=== PATIENT | female | born 1970 | race Caucasian/White ===

== ENCOUNTER 2016-09-09 19:21 | Emergency (ER) | payer BC ==
[~2016-09-09] VITALS: Ht 147.3 cm; Wt 90.7 kg
[~2016-09-09 19:21] MED LIST: ALBUTEROL0.09 MG/A1 IH; ALBUTEROL4 MG PO; ASPIRIN81 M1 PO; ASPIRIN81 M3 PO; ATARAX HCL25 MG PO; BENTYL10 MG PO; BUPROPION HYDR; BUPROPION SR150 MG PO; CARISOPRODOL350 M1; CLARITIN10 MG PO; CLONAZEPAM1 M1 PO; COLACE; DESYREL50 MG PO; HYDROXYZINE PO; LACTINEX1 TAB.CHEW PO; LEVAQUIN750 MG PO; LIPITOR10 MG PO; METHOCARBAMOL750 MG PO; NEURONTIN100 MG PO; NEURONTIN300 MG PO; ONDANSETRON8 M1 PO; PANTOPRAZOLE SO40 M1 PO; PAROXETINE30 M1 PO; PAXIL10 MG PO; PERCOCET 5/3251 TAB PO; PREDNISONE10 M1 PO; PREDNISONE20 M1 PO; PREDNISONE5 M1 PO; PREMARIN0.3 M1 PO; PREMARIN0.625 MG PO; PROAIR HFA0.09 MG/Ac IH; ROBAXIN500 M1 PO; SOMA350 M1 PO; SOMA350 MG PO; SULFAMETH/TRIME1 TA1 PO; TRAMADOL50 MG PO; TRAZADONE HYDR100 MG; TYLENOL325 M1 PO; ULTRAM100 MG PO; WELLBUTRIN SR100 MG PO; WELLBUTRIN100 MG PO; ZOLOFT100 MG PO; ZOLOFT50 M1 PO; ZOLOFT50 MG PO
[2016-09-09 19:35] VITALS: BP 120/68
--- NOTE | 2016-09-09 20:22 | NUR ---
SALMA GOMEZR TO ER BED 5
--- NOTE | 2016-09-09 20:25 | NUR ---
PT BIB FAMILY TO ED WITH C/O BRUISE TO TAIL BONE, S/P FALL X 2 DAYS, PT STATES HX. BACK SX. AND ASTHMA. DENIES N/V/D; SKIN IS PINK/WARM/DRY; AAOX4 WITH EVEN AND STEADY GAIT; LUNGS CLEAR BL; HR EVEN AND REGULAR; PT DENIES ANY FEVER, CP, SOB, OR COUGH AT THIS TIME; PATIENT STATES PAIN OF 10/10 AT THIS TIME; VSS; PATIENT POSITIONED FOR COMFORT; HOB ELEVATED; BEDRAILS UP X2; BED DOWN. ER MD MADE AWARE OF PT STATUS.
--- NOTE | 2016-09-09 20:34 | NUR ---
PT SPO2 AT 68% VIA FINGER PULSE OX. DR BURNETT MADE AWARE.
--- NOTE | 2016-09-09 21:03 | NUR ---
DR BURNETT EVALUATING PT AT BEDSIDE
[2016-09-09] MEDS ORDERED: HYDROmorphone PFS 2 MG/ML SYR IM ONE (21:15)
--- NOTE | 2016-09-09 22:06 | NUR ---
PT TAKEN OFF THE UNIT VIA WHEELCHAIR TO HAVE X-RAY DONE
[2016-09-09] MEDS ORDERED: NACL 0.9% 1,000 ML IV ONE (22:25)
[2016-09-09] MEDS ORDERED: SILVER SULFADIAZINE 1% 50 GM JAR TP ONE (22:25)
--- NOTE | 2016-09-09 22:37 | NUR ---
PT TAKEN OFF UNIT VIA GURNEY TO HAVE CT DONE
--- NOTE | 2016-09-09 23:06 | NUR ---
PT BACK ON UNIT FROM CT
[2016-09-10] MEDS ORDERED: ENOXAPARIN 100 MG/ML SYR SUBQ ONE (00:10)
[2016-09-10] MEDS ORDERED: LEVOFLOXACIN 500 MG/D5W PREMIX 100 ML IV ONE (00:10)
[2016-09-10] MEDS ORDERED: ASPIRIN 81 MG TAB.CHEW PO ONE (00:45)
[2016-09-10] MEDS ORDERED: MORPHINE SULFATE 2 MG/ML SYR IVP ONE (00:45)
[2016-09-10 02:06] VITALS: BP 122/76
--- NOTE | 2016-09-10 02:06 | NUR ---
Patient does not wish to proceed with medical care recommended by DR BURNETT. Patient given information related to possible complications, up to and including , which could occur as a result of leaving hospital at this time. Patient verbalizes understanding of risks involved leaving against medical advice. Patient has signed AMA form. ACCOMPANIED BY SHANELL VIA WHEELCHAIR
[2016-09-11] MEDS ORDERED: PROTONIX40 MG PO (13:35)
[2016-10-30] MEDS ORDERED: LEVAQUIN750 MG PO (09:04)
[2017-01-12] MEDS ORDERED: LIORESAL10 MG PO (14:26)
== END 2016-09-10 02:06 | disposition left against medical advice (07) ==
LOC: MED 19:21
DX: G89.29 Other chronic pain (principal); M54.9 Dorsalgia, unspecified; K75.9 Inflammatory liver disease, unspecified; J18.8 Other pneumonia, unspecified organism; I21.4 Non-ST elevation (NSTEMI) myocardial infarction; Z88.1 Allergy status to other antibiotic agents; Z88.6 Allergy status to analgesic agent
CPT/HCPCS: 36415; 36600; 70450; 71010; 71250; 72100; 73140; 80053; 81001; 81025; 82803; 83605; 83880; 84484; 85025; 85610; 85730; 87040; 87086; 87186; 93005; 96361; 96365; 96372; 99285; J1170; J1650; J1956; J2270; J7030

== ENCOUNTER 2016-09-11 13:09 | Inpatient (IN) | payer BC ==
[~2016-09-11] VITALS: Ht 147.3 cm; Wt 88.9 kg
[2016-09-11 13:17] VITALS: BP 135/74
--- NOTE | 2016-09-11 13:20 | NUR ---
Patient taken to bed 05 via walker per .
[2016-09-11] MEDS ORDERED: PROTONIX40 MG PO (13:35)
[2016-09-11] MEDS ORDERED: ASPIRIN 325 MG TAB PO ONE (13:40)
--- NOTE | 2016-09-11 13:44 | NUR ---
XRAY at bedside.
--- NOTE | 2016-09-11 13:46 | NUR ---
46/F TO ED WITH C/O CHEST PAIN STARTING TODAY. NON RADIATING STERNAL CHEST PAIN 12/12. DENIES SOB. CAP REFILL <3 SECS. NO EDEMA PRESENT. DENIES N/V/D. LUNGS CLEAR BILAT. HR EVEN AND REGULAR. AAOX4. VSS. NO SIGNS OF DISTRESS. WILL CONTINUE TO MONITOR.
--- NOTE | 2016-09-11 13:55 | NUR ---
Dr. Proctor evaluating patient at bedside.
[2016-09-11] MEDS ORDERED: NACL 0.9% 500 ML IV ONE (14:00)
[2016-09-11] MEDS ORDERED: NITROGLYCERIN 0.4 MG TAB SL ONE (14:00)
[2016-09-11] MEDS ORDERED: hePARIN / DEXT 5% PREMIX 250 ML IV ONE (14:50)
[2016-09-11] MEDS ORDERED: HEPARIN PER PHARMACY MC PRN ×2 (14:50→17:05)
[2016-09-11] MEDS ORDERED: MORPHINE SULFATE 5 MG/ML VIAL IVP ONE (14:50)
--- NOTE | 2016-09-11 15:05 | NUR ---
Patient appears to be resting comfortably in bed. Vital Signs within normal limits. Respirations even and unlabored.
[2016-09-11] MEDS ORDERED: MORPHINE SULFATE 10 MG/ML SYR IVP ONE (15:30)
[2016-09-11] MEDS ORDERED: hePARIN / DEXT 5% PREMIX 250 ML IV SCH ×3 (15:40→17:20)
--- NOTE | 2016-09-11 16:22 | NUR ---
Patient appears to be resting comfortably in bed. Vital Signs within normal limits. Respirations even and unlabored.
[2016-09-11] MEDS ORDERED: ONDANSETRON 4 MG/2 ML VIAL IVP PRN (17:00)
[2016-09-11] MEDS ORDERED: DOCUSATE SODIUM 100 MG GELCAP PO PRN (17:00)
[2016-09-11] MEDS ORDERED: DICYCLOMINE 10 MG CAP PO PRN (17:30)
[2016-09-11] MEDS ORDERED: HYDROXYZINE HYDROCHLORIDE PO SCH (17:30)
[2016-09-11] MEDS ORDERED: oxyCODONE/APAP 5/325 MG 1 TAB TAB PO SCH (17:30)
--- NOTE | 2016-09-11 17:45 | NUR ---
Patient will be admitted to care of DR LAW. Admited to TELE. Will go to room 105A. Belongings list completed. Report to
[2016-09-11 18:00] VITALS: BP 110/69
--- NOTE | 2016-09-11 18:00 | NUR ---
PATIENT ARRIVED FROM ER WITH DX OF PULMONARY EMBOLISM. PATIENT AWAKE, ALERT, AND ORIENTED. HIGGINS CATHETER IN PLACE, DRAINING CLEAR YELLOW URINE. PATIENT REPORTS OF SOB AND IS PUT ON 2L O2. O2 SATURATION AT 88%. PATIENT REPORTS TO BE A SMOKER. PATIENTS STATES SHE SMOKES ABOUT 10 CIGARETTES A DAY. PATIENT STATES SHE HAS BEEN A SMOKER FOR 20 YEARS. IV LINE NOTED ON THE RIGHT AC SALINE LOCKED. PATIENT ON HEPARIN DRIP RUNNING AT 12ML/HR INFUSING ON HER LEFT HAND. PATIENT HAS A CLOSED WOUND ON HER SACRAL AREA WITH BLISTERS. PATIENT REPORTS THAT SHE ACQUIRED THE WOUND AFTER SHE FELL DUE TO LACK OF OXYGEN. PATIENT PLACED ON TELE MONITORING. FALL PRECAUTIONS IN PLACE. BED LOWERED WITH CALL LIGHT WITHIN REACH. WILL CONTINUE TO MONITOR
--- NOTE | 2016-09-11 18:30 | NUR ---
PATIENT PUT ON 4L O2 VIA NC. O2 SAT AT 91%. MADE DR PEREZ AWARE
[2016-09-11] MEDS ORDERED: ALBUTEROL SULFATE/IPRATROPIU 3 ML SOL IH PRN (19:10)
--- NOTE | 2016-09-11 19:22 | NUR ---
PATIENT REPORT GIVEN AT BEDSIDE. PATIENT IN STABLE CONDITION
--- NOTE | 2016-09-11 19:30 | NUR ---
REPORT RECEIVED FROM DAY NURSECLAUDIA. PATIENT RESTING IN BED. NO RESPIRATORY DISTRESS, SOB, OR DISCOMFORT. HEPARIN DRIP INFUSING AT THIS TIME; 12 ML/HR, PATIENT TOLERATING WELL. INITIAL ASSESSMENT AND BODY CHECK DONE. PATIENT IS AOX4, IV ACCESS TO LEFT HAND 22G AND RIGHT AC 20G; BOTH PORTS PATENT. PATIENT HAS WOUND/BLISTER TO SACRAL/BUTTOCKS AREA ALONG WITH SURROUNDING BLISTERS AND SCARRING. PATIENT HAS F/C IN PLACE DRAINING CLOUDY YELLOW. DISCUSSED PLAN OF CARE, MEDICATION REGIMENT, AND PAIN MANAGEMENT WITH PATIENT. PATIENT VERBALIZED UNDERSTANDING. PLACED PATIENT ON SAFETY/FALL/PRESSURE ULCER PRECAUTIONS. CALL LIGHT LEFT WITHIN REACH, WILL CONTINUE TO MONITOR.
[2016-09-11 20:00] VITALS: BP 121/68
[2016-09-11] MEDS: NACL 0.9% 1,000 ML IV SCH (20:16)
[2016-09-11] MEDS: ACETAMINOPHEN 325 MG TAB PO PRN (20:18)
[2016-09-11] MEDS: MORPHINE SULFATE 2 MG/ML SYR IVP PRN (20:40)
[2016-09-11] MEDS: GABAPENTIN 300 MG CAP PO SCH (20:55)
[2016-09-11] MEDS: PARoxetine 10 MG TAB PO SCH (20:56)
[2016-09-11] MEDS: ATORVASTATIN 20 MG TAB PO SCH (20:56)
[2016-09-11] MEDS: buPROPion 150 MG TABER PO SCH (20:56)
[2016-09-11] MEDS ORDERED: BUPROPION HCL 150 MG PO SCH (21:00)
[2016-09-11] MEDS ORDERED: PAROXETINE HCL 30 MG PO SCH (21:00)
--- NOTE | 2016-09-11 21:21 | NUR ---
SPOKE WITH PATIENT'S , ERIK, OVER THE PHONE. PATIENT ASLEEP AT THE TIME. UPDATED FAMILY MEMBER OF PATIENT STATUS, VERBALIZED UNDERSTANDING.
--- NOTE | 2016-09-11 22:03 | NUR ---
PATIENT IN BED, SLEEPING. NO RESPIRATORY DISTRESS, SOB, OR DISCOMFORT. CALL LIGHT LEFT WITHIN REACH, WILL CONTINUE TO MONITOR.
[2016-09-11] MEDS ORDERED: INFLUENZA VIRUS VACCINE QUAD 0.5 ML SYR IMVAC PRN (22:30)
[2016-09-11] MEDS ORDERED: LEVOFLOXACIN 500 MG/D5W PREMIX 100 ML IV SCH (23:00)
[2016-09-11] MEDS: SACCHAROMYCES 250 MG CAP PO SCH (23:00)
[2016-09-12] VITALS: BP 100/63
[2016-09-12] MEDS: hePARIN / DEXT 5% PREMIX 250 ML IV SCH ×5 (00:07→22:03)
--- NOTE | 2016-09-12 00:53 | NUR ---
PATIENT ASLEEP. NO RESPIRATORY DISTRESS, SOB, OR DISCOMFORT. CALL LIGHT LEFT WITHIN REACH, WILL CONTINUE TO MONITOR.
--- NOTE | 2016-09-12 03:02 | NUR ---
PATIENT STATING PAIN AND DISCOMFORT TO HIGGINS SITE, PATIENT REQUEST F/C TO BE DISCONTINUED. NO ORDER FROM ADMITTING MD FOR F/C, ORDER FROM ER. HIGGINS CATHETER REMOVED, PATIENT TOLERATED WELL. NO RESPIRATORY DISTRESS, SOB, OR DISCOMFORT. WILL ENDORSE TO DAY SHIFT. CALL LIGHT LEFT WITHIN REACH, WILL CONTINUE TO MONITOR.
[2016-09-12] MEDS: MORPHINE SULFATE 2 MG/ML SYR IVP PRN ×4 (03:25→21:55)
[2016-09-12] MEDS: NACL 0.9% 1,000 ML IV SCH ×4 (03:45→23:45)
[2016-09-12 04:00] VITALS: BP 118/68
--- NOTE | 2016-09-12 06:14 | NUR ---
PATIENT SLEEPING. NO RESPIRATORY DISTRESS, SOB, OR DISCOMFORT. CALL LIGHT LEFT WITHIN REACH, WILL CONTINUE TO MONITOR.
--- NOTE | 2016-09-12 07:33 | NUR ---
REPORT GIVEN TO DAY NURSEIKER. PATIENT RESTING IN BED, STABLE. NO RESPIRATORY DISTRESS, SOB, OR DISCOMFORT. ALL NEEDS ATTENDED TO DURING SHIFT, CALL LIGHT LEFT WITHIN REACH.
--- NOTE | 2016-09-12 07:34 | NUR ---
RECEIVED REPORT FROM CHARLINE TAYLOR. PT IS AAOX4, PT ON 53 OXIMIZER O2 SAT AT 96%. NO S/S OF DISTRESS NOTED. IV TO LEFT HAND #22 AND RIGHT AC #20 PATENT AND INTACT. NO N/V OR PAIN INDICATED. SACRAL BLISTER NOTED. ALL SAFETY PRECAUTIONS IN PLACE, SIDE RAILSX2, BED IN LOW POSITION, AND CALL LIGHT WITHIN REACH. WILL CONTINUE TO MONITOR. Addendum: 09/12/16 at 0805 by Lorelei Castillo RN PT ON 5L OXIMIZER
[2016-09-12 08:00] VITALS: BP 117/73
[2016-09-12] MEDS ORDERED: hydrOXYzine HCL 25 MG TAB PO PRN (08:30)
--- NOTE | 2016-09-12 08:43 | NUR ---
PATIENT HAS BEEN SCREENED AND CATEGORIZED HIGH NUTRITION RISK. PATIENT WILL BE SEEN WITHIN 1-2 DAYS OF ADMISSION. 09/12/16-09/13/[address]
--- NOTE | 2016-09-12 08:49 | NUR ---
RECEIVED CRITICAL VALUE, PT BLOOD CULTURE POSITIVE GRAM NEGATIVE RODS ON TWO SETS. DR TOLENTINO MADE AWARE.
[2016-09-12] MEDS ORDERED: PANTOPRAZOLE 40 MG TABEC PO SCH (09:00)
[2016-09-12] MEDS: buPROPion 150 MG TABER PO SCH ×2 (09:13→20:35)
[2016-09-12] MEDS: PANTOPRAZOLE 40 MG TABEC PO SCH (09:13)
[2016-09-12] MEDS: SACCHAROMYCES 250 MG CAP PO SCH ×2 (09:14→20:35)
[2016-09-12] MEDS: GABAPENTIN 300 MG CAP PO SCH ×4 (09:14→20:35)
[2016-09-12] MEDS: PARoxetine 10 MG TAB PO SCH ×2 (09:15→20:36)
[2016-09-12] MEDS: ACETAMINOPHEN 325 MG TAB PO PRN ×2 (09:20→16:14)
--- NOTE | 2016-09-12 09:21 | NUR ---
PT TOLERATED MEDS WELL. PT'S TEMP AT 101.2, ADMINISTERED TYLENOL ORDERED. WILL CONTINUE TO MONITOR.
--- NOTE | 2016-09-12 09:48 | NUR ---
PT TOLERATED MEDS WELL. WILL CONTINUE TO MONITOR.
--- NOTE | 2016-09-12 10:34 | NUR ---
RETOOK PT'S TEMP AT 98.7, ORAL. WILL CONTINUE TO MONITOR.
--- NOTE | 2016-09-12 11:36 | NUR ---
SATURATION 96% ON SUPPLEMENTAL OXYGEN AT 5 LPM VIA OXYMIZER POST HHN THERAPY TITRATED FIO2 TO 4 LPM IKER/RN NOTIFIED
[2016-09-12] MEDS: ALBUTEROL SULFATE/IPRATROPIU 3 ML SOL IH PRN ×2 (11:37→16:23)
--- NOTE | 2016-09-12 11:43 | NUR ---
IV TO LEFT HAND INFILTRATED. NEW IV STARTED TO LEFT #22, PATENT AND INTACT. WILL CONTINUE TO MONITOR.
[2016-09-12 12:00] VITALS: BP 101/62
--- NOTE | 2016-09-12 12:06 | NUR ---
PT TOLERATED MEDS WELL. WILL CONTINUE TO MONITOR.
--- NOTE | 2016-09-12 12:20 | NUR ---
TALKED TO DR RAJAN MD AWARE OF PT'S LOW POTASSIUM AND BLISTER TO SACRAL AREA. MD TO PLACE ORDERS.
--- NOTE | 2016-09-12 13:38 | NUR ---
RECEIVED CRITICAL VALUES FROM LAB. PT IS POSITIVE ECOLI, ESBL, AND MDRO OF THE URINE. DR TOLENTINO MADE AWARE. PT TO BE PLACED ON CONTACT PRECAUTIONS.
--- NOTE | 2016-09-12 13:59 | NUR ---
09/13/15 RD INITIAL ASSESSMENT COMPLETED PLEASE REFER TO NUTRITION ASSESSMENT UNDER CARE ACTIVITY FOR ESTIMATED NUTRITIONAL NEEDS. RD RECOMMENDATIONS: 1. CONTINUE CARDIAC DIET MEDICALLY APPROPRIATE. 2. RD WILL F/U 3-5 DAYS; MODERATE RISK. DAVIS MINAYA, RD
--- NOTE | 2016-09-12 14:19 | NUR ---
PT TOLERATED MEDS WELL. WILL CONTINUE TO MONITOR.
[2016-09-12] MEDS ORDERED: POTASSIUM CHLORIDE 10 MEQ TABER PO SCH (14:30)
--- NOTE | 2016-09-12 14:34 | NUR ---
IV TO RIGHT AC INFILTRATED, REMOVED WITH CANNULA INTACT. ATTEMPTED TO INSERT IV UNSUCCESSFUL. WILL NOTIFY CHARGE NURSE.
--- NOTE | 2016-09-12 15:00 | NUR ---
NEW IV STARTED TO RIGHT FOOT #22, PATENT AND INTACT. HEPARIN BOLUS OF 5100 UNITS ADMINISTERED, HEPARIN TITRATED TO 19 MLS/HR. WILL CONTINUE TO MONITOR.
[2016-09-12 16:00] VITALS: BP 115/68
--- NOTE | 2016-09-12 16:21 | NUR ---
VSS. PT C/O 03/14 PAIN. ADMINISTERED MORPHINE ORDERED. PT TOLERATED WELL. WILL CONTINUE TO MONITOR. Addendum: 09/12/16 at 1628 by Lorelei Castillo RN PT TEMP AT 101.7, ADMINISTERED TYLENOL ORDERED.
--- NOTE | 2016-09-12 16:22 | NUR ---
IKER/RN IN ROOM SATS 90%-91% ON 4 LPM VIA OXYMIZER INCREASED TO 5 LPM
--- NOTE | 2016-09-12 16:24 | NUR ---
AWAKE AND ALERT RESPONSIVE TO PACK OPERATOR PATIENT C/O OF SOB ASSESSMENT COMPLETED HHN PRN THERAPY GIVEN AT THIS TIME TOLERATED WELL WITHOUT INCIDENT
--- NOTE | 2016-09-12 17:50 | NUR ---
REASSESSED PT'S TEMP AT 97.5. WILL CONTINUE TO MONITOR.
[2016-09-12] MEDS ORDERED: PIPER/TAZO 3.375GM/D5W PREMIX 50 ML IV SCH (18:00)
--- NOTE | 2016-09-12 19:17 | NUR ---
ENDORSED CARE TO CHARLINE GRIFFIN. PT IN STABLE CONDITION.
--- NOTE | 2016-09-12 19:25 | NUR ---
RECEIVED PT AWAKE WITH AT BEDSIDE, VITAL SIGNS TAKEN, TEMP-99.0, NO SOB NOTED, ON OXIMIZER AT 5L, OCCASIONAL COUGH NOTED, ON HEPARIN DRIP AT 19ML/H, IVF INFUSING WELL, MAINTAINED ON CONTACT ISOLATION, POC DISCUSSED, SAFETY MEASURES IN PLACE, ENCOURAGE TO CALL FOR ASSISTANCE, CALL LIGHT WITHIN REACH.
--- NOTE | 2016-09-12 19:37 | NUR ---
NO DISTRESS/SOB/WHEEZING NOTED AT THIS TIME. NO INDICATION FOR HHN PRN TX. PT'S RN, ELIAS AT BEDSIDE.
[2016-09-12 20:00] VITALS: BP 105/57
[2016-09-12] MEDS: MEROPENEM 500 MG in NACL 0.9% 50 ML IV SCH (20:34)
[2016-09-12] MEDS: ATORVASTATIN 20 MG TAB PO SCH (20:35)
[2016-09-12] MEDS: HYDROcodone/APAP 5/325 MG 1 TAB TAB PO PRN (20:41)
--- NOTE | 2016-09-12 21:20 | NUR ---
ASSISTED BY MEDICAL SCREENER TO BEDSIDE COMMODE AND VOIDED FREELY, ALL NEEDS ATTENDED.
--- NOTE | 2016-09-12 22:05 | NUR ---
MEDICATED PRN FOR PAIN, PTT-45.6, HEPARIN PROTOCOL FOLLOWED, BOLUS GIVEN AND RATE INCREASED TO 20 ML/H, NEXT PTT DRAW AT 0403, NO DISTRESS NOTED, MONITORED CLOSELY.
[2016-09-13] VITALS: BP 119/57
[2016-09-13] MEDS: hePARIN / DEXT 5% PREMIX 250 ML IV SCH ×2 (00:59→13:46)
[2016-09-13] MEDS ORDERED: LORazepam 2 MG/ML VIAL IVP PRN (01:45)
--- NOTE | 2016-09-13 02:00 | NUR ---
PT ANXIOUS, VERBALIZED SHE JUST WOKE UP VERY ANXIOUS, DENIES CHEST PAIN, VITAL SIGNS TAKEN:BP-105/56, HR-114, RR-24, SAT-95%, TEMP-99.4, PAGED DR LIVINGSTON WITH NEW ORDERS, MEDICATED WITH ATIVAN IVP ORDERED, MONITORED CLOSELY.
--- NOTE | 2016-09-13 03:00 | NUR ---
ROUNDED ON PT, SLEEPING, NO SIGNS OF DISTRESS, MONITORED CLOSELY.
[2016-09-13 04:00] VITALS: BP 105/63
[2016-09-13] MEDS: ACETAMINOPHEN 325 MG TAB PO PRN ×3 (04:24→19:35)
[2016-09-13] MEDS: MEROPENEM 500 MG in NACL 0.9% 50 ML IV SCH ×3 (04:24→20:10)
[2016-09-13] MEDS: MORPHINE SULFATE 2 MG/ML SYR IVP PRN ×4 (04:25→23:19)
--- NOTE | 2016-09-13 04:30 | NUR ---
VITAL SIGNS STABLE, TEMP-103.0, MEDICATED PRN FOR PAIN AND TYLENOL PO, COOLING MEASURES DONE, IV ANTIBIOTIC ADMINISTERED, NO RESP DISTRESS, HEPARIN DRIP ON-GOING, MONITORED CLOSELY.
--- NOTE | 2016-09-13 05:43 | NUR ---
PT SLEEPING, EASILY AROUSABLE, NO SIGNS OF SOB, TEMP RECHECKED-99.6, CONTINUE COOLING MEASURES, MONITORED CLOSELY.
--- NOTE | 2016-09-13 07:00 | NUR ---
PTT OF 39.8, PER PROTOCOL HEPARIN 2600 UNITS IVP GIVEN AND RATE ADJUSTED TO 2100 UNITS/H DONE, NEXT PTT DRAW AT 1258.
--- NOTE | 2016-09-13 07:22 | NUR ---
PT SLEEPING, NO SIGNS OF DISTRESS, REPORT GIVEN TO RN IKER FOR CONTINUITY OF CARE.
--- NOTE | 2016-09-13 07:23 | NUR ---
RECEIVED REPORT FROM CHARLINE GRIFFIN. PT IS AAOX4, PT ON 4.5L OXIMIZER. NO S/S OF DISTRESS NOTED. IV TO LEFT HAND #22 AND RIGHT FOOT #22, PATENT AND INTACT. WOUND NOTED TO SACRAL AREA. NO N/V OR PAIN INDICATED. PT ON CONTACT PRECAUTIONS WITH SIGNS POSTED ON WALL, PRECAUTIONS IN PLACE. ALL SAFETY PRECAUTIONS IN PLACE, SIDE RAILSX2, BED IN LOW POSITION, AND CALL LIGHT WITHIN REACH. WILL CONTINUE TO MONITOR.
[2016-09-13] MEDS ORDERED: POTASSIUM CHLORIDE 10 MEQ TABER PO SCH (07:51)
[2016-09-13 08:00] VITALS: BP 110/63
[2016-09-13] MEDS: NACL 0.9% 1,000 ML IV SCH ×2 (08:16→20:10)
--- NOTE | 2016-09-13 08:18 | NUR ---
PT TOLERATED MEDS WELL. WILL CONTINUE TO MONITOR.
[2016-09-13] MEDS: PANTOPRAZOLE 40 MG TABEC PO SCH (09:56)
[2016-09-13] MEDS: buPROPion 150 MG TABER PO SCH ×2 (09:57→20:09)
[2016-09-13] MEDS: SACCHAROMYCES 250 MG CAP PO SCH ×2 (09:58→20:10)
[2016-09-13] MEDS: GABAPENTIN 300 MG CAP PO SCH ×4 (09:58→20:10)
[2016-09-13] MEDS: PARoxetine 10 MG TAB PO SCH ×2 (09:59→20:09)
--- NOTE | 2016-09-13 10:04 | NUR ---
RECEIVED CRITICAL VALUE. PT IS POSITIVE FOR MRSA OF THE NARES. URINE CULTURE POSITIVE FOR MDRO, E.COLI, AND ESBL. DR TOLENTINO MADE AWARE, PROTOCOL. NO CHANGES IN ABX.
[2016-09-13] MEDS: MUPIROCIN 2% OINT 22 GM TUBE TP SCH (10:56)
[2016-09-13] MEDS: CHLORHEXADINE GLUC 2% CLOTH TP SCH (10:57)
--- NOTE | 2016-09-13 10:59 | NUR ---
PT C/O 01/11 PAIN. VSS. ADMINISTERED MORPHINE ORDERED. PT TOLERATED MEDS WELL. WILL CONTINUE TO MONITOR.
[2016-09-13 12:00] VITALS: BP 106/59
--- NOTE | 2016-09-13 12:38 | NUR ---
PT TOLERATED MEDS WELL. PT TEMP AT 99.1. ADMINISTERED TYLENOL ORDERED. WILL CONTINUE TO MONITOR.
[2016-09-13] MEDS ORDERED: SODIUM PHOS / POTASSIUM PHOS 1 PKT PDR PO SCH (13:41)
--- NOTE | 2016-09-13 13:58 | NUR ---
PT TOLERATED MEDS WELL. WILL CONTINUE TO MONITOR.
--- NOTE | 2016-09-13 14:32 | NUR ---
RECEIVED CRITICAL VALUE PTT 60.5, PER PROTOCOL NO CHANGES.
[2016-09-13 16:00] VITALS: BP 103/65
--- NOTE | 2016-09-13 16:45 | NUR ---
PT TOLERATED MEDS WELL. WILL CONTINUE TO MONITOR.
--- NOTE | 2016-09-13 17:30 | NUR ---
DR CORONADO IN TO SEE PT. PER O2 TO BE TAPERED DOWN AND KEPT ABOVE 90%.
--- NOTE | 2016-09-13 17:33 | NUR ---
PT C/O 12/12 PAIN. VSS. ADMINISTERED MORPHINE ORDERED. WILL CONTINUE TO MONITOR.
--- NOTE | 2016-09-13 17:35 | NUR ---
LOWERED O2 TO 2.5L OXIMIZER, PT O2 SAT AT 91%. WILL CONTINUE TO MONITOR.
--- NOTE | 2016-09-13 19:17 | NUR ---
ENDORSED CARE TO CHARLINE GRIFFIN. PT IN STABLE CONDITION.
--- NOTE | 2016-09-13 19:35 | NUR ---
RECEIVED PT SLEEPING, EASILY AROUSABLE, NO SIGNS OF SOB, VITAL SIGNS STABLE, ORAL TEMP-100.5, TYLENOL PO GIVEN, COOLING MEASURES DONE, DENIES ANY PAIN, HEPARIN DRIP INFUSING WELL AT 2100 UNITS/H, MAINTAINED ON CONTACT ISOLATION, POC DISCUSSED, SAFETY MEASURES IN PLACE, CALL LIGHT WITHIN REACH.
--- NOTE | 2016-09-13 19:39 | NUR ---
CHANGED OXIMIZER WITH SIMPLE SAT IN 3L NC ARE 95% NASAL CANNULA, PER PT REQUEST.
[2016-09-13 20:00] VITALS: BP 106/55
[2016-09-13] MEDS: ATORVASTATIN 20 MG TAB PO SCH (20:09)
--- NOTE | 2016-09-13 20:20 | NUR ---
DUE MEDS ADMINISTERED, SNACK PROVIDED PER PT REQUEST, TOLERATED WELL, ALL NEEDS ATTENDED.
--- NOTE | 2016-09-13 22:00 | NUR ---
PTT OF 51.3, THERAPEUTIC LEVEL, NO CHANGE ON HEPARIN DRIP OF 2100 UNITS/H, NEXT PTT DRAW AT 0253 09/14/16.
[2016-09-14] VITALS: BP 104/56
--- NOTE | 2016-09-14 | NUR ---
PT SLEEPING, EASILY AROUSABLE, VITAL SIGNS STABLE, AFEBRILE, DENIES ANY PAIN, NO SOB NOTED, CONTINUE TO MONITOR CLOSELY.
[2016-09-14] MEDS: hePARIN / DEXT 5% PREMIX 250 ML IV SCH ×2 (01:46→14:42)
--- NOTE | 2016-09-14 01:50 | NUR ---
ASSISTED TO BEDSIDE COMMODE, VOIDED FREELY AND HAD BM WITH SOFT STOOL, MADE COMFORTABLE ON BED, NEW HEPARIN DRIP BAG STARTED WITH SAME RATE OF 2100 UNITS/H, MONITORED CLOSELY.
[2016-09-14 04:00] VITALS: BP 110/54
[2016-09-14] MEDS: MEROPENEM 500 MG in NACL 0.9% 50 ML IV SCH ×3 (04:17→20:27)
--- NOTE | 2016-09-14 04:20 | NUR ---
PT SLEEPING, EASILY AROUSABLE, VITAL SIGNS STABLE, TEMP-99.2, NO SOB NOTED, DUE IV ANTIBIOTIC ADMINISTERED, MONITORED CLOSELY.
[2016-09-14] MEDS: MORPHINE SULFATE 2 MG/ML SYR IVP PRN ×4 (05:33→21:03)
--- NOTE | 2016-09-14 05:35 | NUR ---
AM LABS DRAWN, MEDICATED PRN FOR PAIN, NO DISTRESS NOTED.
[2016-09-14] MEDS: NACL 0.9% 1,000 ML IV SCH ×2 (05:45→15:47)
--- NOTE | 2016-09-14 06:30 | NUR ---
ROUNDED ON PT, PT SLEEPING, NO SIGNS OF DISTRESS, IVF AND HEPARIN DRIP INFUSING WELL.
--- NOTE | 2016-09-14 07:15 | NUR ---
PT SLEEPING, NO SIGNS OF DISTRESS, REPORT GIVEN TO CHARLINE SEGURA FOR CONTINUITY OF CARE.
--- NOTE | 2016-09-14 07:16 | NUR ---
RECEIVED PT FROM CHARLINE GRIFFIN ASLEEP BUT EASILY AWAKE, AAOX4, WITH O2 AT 3LPM VIA NC, NO S/S OF DISTRESS AT THIS TIME. WITH IV ACCESS AT LEFT HAND 22G ON HEPARIN DRIP INFUSING WELL AT 2100 UNITS PER HOUR. ALSO WITH IV ACCESS AT RIGHT FOOT 22G INFUSING FLUIDS WELL. WITH SACRAL WOUND OPEN TO AIR, DRY AND NO DRAINAGE NOTED. DISCUSSED PLAN OF CARE, PT VERBALIZED UNDERSTANDING. SAFETY PRECAUTIONS ENFORCED. CALL LIGHT WITHIN REACH, WILL CONTINUE TO MONITOR.
[2016-09-14] MEDS: PARoxetine 10 MG TAB PO SCH ×2 (08:17→20:42)
[2016-09-14] MEDS: GABAPENTIN 300 MG CAP PO SCH ×4 (08:18→20:40)
[2016-09-14] MEDS: PANTOPRAZOLE 40 MG TABEC PO SCH (08:18)
[2016-09-14] MEDS: buPROPion 150 MG TABER PO SCH ×2 (08:18→20:42)
[2016-09-14] MEDS: HYDROcodone/APAP 5/325 MG 1 TAB TAB PO PRN (08:18)
[2016-09-14] MEDS: SACCHAROMYCES 250 MG CAP PO SCH ×2 (08:18→20:41)
--- NOTE | 2016-09-14 08:19 | NUR ---
DUE MEDS GIVEN, PT TOLERATED WELL. COMPLAINED OF BACK PAIN, NORCO GIVEN. WILL REASSESS PAIN IN AN HOUR.
[2016-09-14] MEDS ORDERED: POTASSIUM CHLORIDE 10 MEQ TABER PO SCH (08:52)
[2016-09-14 09:42] VITALS: BP 108/61
--- NOTE | 2016-09-14 10:21 | NUR ---
PT AWAKE LYING ON BED. ALL NEEDS MET AT THIS TIME. CALL LIGHT WITHIN REACH, WILL CONTINUE TO MONITOR.
--- NOTE | 2016-09-14 10:30 | NUR ---
WOUND CARE EVALUATION NOTES: REASON FOR EVALUATION: BLISTERS ON BACK AREA COMPLETE SKIN ASSESSMENT DONE ON THIS 46 Y/O FEMALE PATIENT FROM HOME TO [facility], WITH INITIAL DIAGNOSIS OF PULMONARY EMBOLISM. PAST MEDICAL HISTORY INCLUDE ANXIETY, DEPRESSION, CHRONIC BACK AND GERD. ALL ABOVE INFORMATION WAS OBTAINED FROM THE ADMISSION H&P. LABS ARE WBC 9.8, H/H 11.0/33.2, GLUCOSE 103, ALBUMIN 3.1, PT/INR 10.0/1.1 AND PTT 51.3. CURRENT MEDS INCLUDE MEROPENEM, HEPARIN AND NORCO. PATIENT IS AWAKE, ORIENTED TO PERSON, PLACE AND TIME. ABLE TO FOLLOW SIMPLE COMMANDS. SKIN WARM TO TOUCH WNL, TOENAILS WNL, NO EDEMA, WITH HAIR GROWTH AND +2 BILATERAL PEDAL PULSES. URINE AND BOWEL CONTINENT, ABLE TO AMBULATE TO THE RESTROOM. ABLE TO TURN SELF WITHOUT ASSISTANCE. SURGICAL SCARRING NOTED ON THE MIDLINE BACK. INITIAL PLAN OF CARE AND PRESSURE PREVENTIVE MEASURES DISCUSSED, ABLE TO VERBALIZE UNDERSTANDING. INTEGUMENTARY: MID LOWER BACK TO SACRALCOCCYX - ST II - MULTIPLE OPEN AND INTACT BLISTERS LEFT BUTTOCK - UTD - 100% BLACK, WITH INDURATION 1.5CM ALL AROUND. RECOMMENDATIONS: -CLEANSE LEFT BUTTOCK WITH NS AND GAUZE, PAT DRY, APPLY THERAHONEY GEL, COVER WITH ADPATIC AND COMPOSITE DRESSING Q DAY AND PRN WITH SOILING/DISPLACEMENT -CLEANSE MID LOWER BACK TO SACRALCOCCYX WITH NS AND GAUZE, PAT DRY, COVER WITH ADAPTIC AND COMPOSITE DRESSING Q DAY AND PRN WITH SOILING/DISPLACEMENT --TURN AND REPOSITION PATIENT Q2H -ASSESS AND MONITOR SKIN CONDITION DURING POSITION CHANGE, PLEASE PAY PARTICULAR ATTENTION TO SACRALCOCCYX, ELBOWS AND HEELS -OFFLOAD BILATERAL HEELS BY PLACING PILLOWS UNDER CALVES AT ALL TIMES, UNLESS OTHERWISE CONTRAINDICATED -SOFT TISSUE U/S OF LEFT BUTTOCK IF OK WITH PMD -KEEP SKIN CLEAN AND DRY AT ALL TIMES. RECOMMENDATIONS DISCUSSED WITH PRIMARY RN AND RESIDENT PHYSICIAN, DR PEREZ. WILL FOLLOW UP PATIENT Q 7 DAYS AND PRN. PLEASE CONTACT [facility] FOR ANY CONCERNS, QUESTIONS AND CHANGES IN SKIN CONDITION.
[2016-09-14 12:01] VITALS: BP 95/54
[2016-09-14] MEDS: CHLORHEXADINE GLUC 2% CLOTH TP SCH (12:36)
[2016-09-14] MEDS: MUPIROCIN 2% OINT 22 GM TUBE TP SCH (12:36)
--- NOTE | 2016-09-14 12:45 | NUR ---
PT AWAKE AND WATCHING TV. VS STABLE. WILL CONTINUE TO MONITOR.
--- NOTE | 2016-09-14 14:11 | NUR ---
DR CORONADO AT BEDSIDE
--- NOTE | 2016-09-14 14:28 | NUR ---
PT WANTING TO GO HOME, NOTIFIED DR. PEREZ. DR PEREZ AT BEDSIDE TALKING TO PT AND HER
--- NOTE | 2016-09-14 14:39 | NUR ---
PT OXYGEN TITRATED FROM 4L TO 2L NC. SPO2 94% PT SITTING AT EDGE OF BED. PT NOT SOB AND NOT IN RESPIRATORY DISTRESS AT THIS TIME.
--- NOTE | 2016-09-14 14:39 | NUR ---
CM NOTE INITIAL REVIEW FAXED TO [facility] / FAX# [phone], ATTN: ROD #[phone], OPT. 5, 2
--- NOTE | 2016-09-14 14:42 | NUR ---
PT PLACED ON ROOM AIR. WILL CHECK SPO2 AGAIN IN TEN MIN PER ORDER OF . NURSE IS BEDSIDE AND AWARE.
--- NOTE | 2016-09-14 15:00 | NUR ---
SPO2 90-91% ON ROOM AIR. PT NOT SOB AND NOT IN RESPIRATORY DISTRESS AT THIS TIME.
[2016-09-14 16:00] VITALS: BP 120/44
--- NOTE | 2016-09-14 16:01 | NUR ---
PT SPO2 AT 87%. RT NOTIFIED, OX 2LPM GIVEN VIA NC Addendum: 09/14/16 at 1659 by Romy Delgadillo RN O2 2LPM GIVEN
--- NOTE | 2016-09-14 17:30 | NUR ---
PT SIGNED AMA FORM DESPITE CONSEQUENCES EXPLAINED BY DR. PEREZ
--- NOTE | 2016-09-14 17:48 | NUR ---
PT CHANGED HER MIND ABOUT GOING HOME AGAINST MEDICAL ADVISED. DR. PEREZ IN THE ROOM SPEAKING TO AND PATIENT.
[2016-09-14] MEDS ORDERED: THERAHONEY GEL 42.5 GM TP SCH (18:20)
[2016-09-14] MEDS ORDERED: RIVAROXABAN 15 MG TAB PO SCH (18:30)
[2016-09-14] MEDS ORDERED: THERAHONEY GEL 42.5 GM TP PRN ×2 (18:35)
--- NOTE | 2016-09-14 18:49 | NUR ---
XARELTO GIVEN, HEPARIN DRIP DISCONTINUED
[2016-09-14] MEDS: THERAHONEY GEL 42.5 GM TP SCH ×2 (18:56)
--- NOTE | 2016-09-14 19:06 | NUR ---
WOUND DRESSING DONE. ADVISED PT TO INFORM NURSE IF DRESSING GETS SOILED. PT VERBALIZED UNDERSTANDING.
--- NOTE | 2016-09-14 19:28 | NUR ---
ENDORSED PT TO CHARLINE DE DIOS IN STABLE CONDITION FOR CONTINUITY OF CARE
--- NOTE | 2016-09-14 19:30 | NUR ---
RECEIVED REPORT FROM IMELDA OLIIVER AT BEDSIDE. PT IS ALERT AWAKE ORIENTED X4. INITIAL ASSESSMENT DONE. NO S/S OF RESPIRATORY DISTRESS OR SOB NOTED. ON O2 @ 3L/MIN VIA NASAL CANULA. NO C/O PAIN OR ANY DISCOMFORT AT THIS TIME. PLAN OF CARE REVIEWED TO PT AND VERBALIZED UNDERSTANDING. CALL LIGHT WITHIN REACH. WILL CONTINUE TO MONITOR.
[2016-09-14 20:00] VITALS: BP 113/64
[2016-09-14] MEDS: ATORVASTATIN 20 MG TAB PO SCH (20:41)
[2016-09-14] MEDS: LORazepam 2 MG/ML VIAL IM/IVP PRN (21:53)
--- NOTE | 2016-09-14 22:43 | NUR ---
ASLEEP RESTING COMFORTABLY NO PULMONARY DISTRESS NOTED
[2016-09-15] VITALS (7 sets, daily range): BP systolic 95–117; BP diastolic 54–83
--- NOTE | 2016-09-15 00:10 | NUR ---
PT IS SLEEPING RIGHT NOW BUT EASILY AROUSABLE. NO S/S OF ANY DISCOMFORT AT THIS TIME. ALL NEEDS ARE ATTENDED. CALL LIGHT WITHIN REACH. WILL CONTINUE TO MONITOR.
[2016-09-15] MEDS: NACL 0.9% 1,000 ML IV SCH ×3 (03:07→21:05)
[2016-09-15] MEDS: MEROPENEM 500 MG in NACL 0.9% 50 ML IV SCH ×3 (04:16→20:49)
--- NOTE | 2016-09-15 05:00 | NUR ---
AM CARE RENDERED. BED LINEN CHANGED. INSTRUCTED PT TO REPOSITION. KEPT CLEAN AND DRY. CALL LIGHT WITHIN REACH. WILL CONTINUE TO MONITOR.
--- NOTE | 2016-09-15 07:20 | NUR ---
PT HAS NO S/S OF ANY DISCOMFORT. PLAN OF CAR ENDORSED TO IMELDA OLIVIER AT BEDSIDE FOR CONTINUITY OF CARE.
--- NOTE | 2016-09-15 07:21 | NUR ---
RECEIVED PT ASLEEP BUT EASILY AWOKEN, AAOX4, WITH O2 AT 2LPM VIA NC, NO S/S OF RESPIRATORY DISTRESS. WITH IV ACCESS ON LEFT HAND 22G INFUSING FLUIDS WELL. ALSO HAS IV ACCESS ON RIGHT FOOT 22G ON SALINE LOCK PATENT AND INTACT. WITH WOUND DRESSING ON SACRAL AREA, DRY AND INTACT. NO COMPLAINTS OF PAIN AT THIS TIME. DISCUSSED PLAN OF CARE, PT VERBALIZED UNDERSTANDING. CALL LIGHT WITHIN REACH, WILL CONTINUE TO MONITOR.
[2016-09-15] MEDS ORDERED: RIVAROXABAN 15 MG TAB PO SCH (08:00)
[2016-09-15] MEDS: GABAPENTIN 300 MG CAP PO SCH ×4 (08:25→20:52)
[2016-09-15] MEDS: buPROPion 150 MG TABER PO SCH ×2 (08:26→20:52)
[2016-09-15] MEDS: SACCHAROMYCES 250 MG CAP PO SCH ×2 (08:26→20:52)
[2016-09-15] MEDS: PANTOPRAZOLE 40 MG TABEC PO SCH (08:26)
[2016-09-15] MEDS: PARoxetine 10 MG TAB PO SCH ×2 (08:26→20:58)
--- NOTE | 2016-09-15 08:26 | NUR ---
DUE MEDS GIVEN, PT TOLERATED WELL. PT KEPT CLEAN AND DRY. COMPLAINED OF PAIN, MORPHINE GIVEN PER ORDERS. CALL LIGHT WITHIN REACH, WILL CONTINUE TO MONITOR.
[2016-09-15] MEDS: MORPHINE SULFATE 2 MG/ML SYR IVP PRN ×3 (08:27→20:58)
--- NOTE | 2016-09-15 09:22 | NUR ---
DRESSING CHANGE DONE PER ORDERS. NO DRAINAGE NOTED. CALL LIGHT WITHIN REACH, WILL CONTINUE TO MONITOR.
--- NOTE | 2016-09-15 10:24 | NUR ---
PT AMBULATORY, BACK TO BED FROM TOILET, TOLERATED WELL. WEANED OFF OXYGEN PER DR. PEREZ'S ORDERS. WILL MONITOR SPO2
--- NOTE | 2016-09-15 10:43 | NUR ---
SPO2 CHECKED= 99%
[2016-09-15] MEDS ORDERED: CALCIUM CARB/VIT-D 500 MG/200 IU 1 TAB PO SCH (11:00)
--- NOTE | 2016-09-15 11:08 | NUR ---
SS NOTE: I SPOKE WITH PT AND PT STATED THAT SHE WOULD LIKE TO GO HOME AND DOES NOT WANT SNF FOR HER IV ABX. I ALSO MADE HER AWARE THAT SHE MAY HAVE A CO-PAY FOR THE HOME HEALTH AGENCY WELL FOR HER IV ABX, SHE VERBALIZED UNDERSTANDING AND WAS IN AGREEMENT. PT INQUIRED ABOUT HOME OXYGEN. I INFORMED HER THAT PT WOULD HAVE TO QUALIFY FOR HOME OXYGEN IN ORDER FOR PT'S INSURANCE TO APPROVE IT.
--- NOTE | 2016-09-15 11:19 | NUR ---
FAXED CONCURRENT REVIEW TO [facility] [phone] PHONE ROD [phone] I CALLED ROD AT [facility] ABOUT ORDER FOR HOME HEALTH FOR IV ANTIBIOTICS. SHE SAID THAT THE HOME HEALTH WE GET NEEDS TO CALL INTAKE TO CREATE A CASE . PHONE FOR INTAKE IS [phone].
[2016-09-15] MEDS: CHLORHEXADINE GLUC 2% CLOTH TP SCH (11:38)
[2016-09-15] MEDS: MUPIROCIN 2% OINT 22 GM TUBE TP SCH (11:38)
[2016-09-15] MEDS: THERAHONEY GEL 42.5 GM TP SCH ×2 (12:49→12:50)
--- NOTE | 2016-09-15 13:39 | NUR ---
DR CORONADO AT BEDSIDE
--- NOTE | 2016-09-15 14:26 | NUR ---
SS NOTE PER JENI FROM [employer] ([phone]), HIS OFFICE IS WORKING ON PT'S HOME OXYGEN ORDER PER GRETA FROM [facility] ([phone]), PT'S DAILY CO-PAY FOR MEDICATIONS AND SUPPLIES IS $9.51 AND DAILY CO-PAY FOR NURSING IS $12.50.
[2016-09-15] MEDS ORDERED: HYDROmorphone 1 MG/ML AMP IVP PRN (15:25)
--- NOTE | 2016-09-15 15:37 | NUR ---
OXYGEN ARRIVED FROM [email or web address] [facility]. CONSENT FOR PICC LINE SIGNED BY PT, DR. PEREZ NOTIFIED
--- NOTE | 2016-09-15 16:00 | NUR ---
ОЛЕГ IN THE ROOM SPEAKING TO PT AND .
--- NOTE | 2016-09-15 16:02 | NUR ---
SS NOTE PER GRETA FROM [facility] ([phone]), SHE WILL BE THERE SOON TO DO A BEDSIDE TEACHING FOR PT. SHE ALSO STATED THAT THEIR OFFICE WILL MAKE PAYMENT ARRANGEMENTS WITH PT AND INFORM HER OF THE CO-PAY.
--- NOTE | 2016-09-15 16:55 | NUR ---
PICC LINE INSERTION STARTED, DONE BY DR. LESLIE AND DR. PEREZ. PT IN STABLE CONDITION
[2016-09-15] MEDS: HYDROmorphone 1 MG/ML AMP ONE ×2 (18:02→18:04)
--- NOTE | 2016-09-15 18:38 | NUR ---
MDS UNABLE TO INSERT PICC LINE.
--- NOTE | 2016-09-15 19:19 | NUR ---
ENDORSED PT TO CHARLINE LUBIN IN STABLE CONDITION FOR CONTINUITY IF CARE
--- NOTE | 2016-09-15 19:28 | NUR ---
RECEIVED REPORT FROM CHARLINE SEGURA, AT BEDSIDE. INITIAL ASSESSMENT AND BODY CHECK DONE. PATIENT AAO X 4, ABLE TO FOLLOW COMMAND AND MAKE NEEDS KNOWN AND AMBULATORY BY SELF WITH STEADY GAIT. PATIENT CURRENTLY SITTING UP ON THE BED AND TALKING TO HER . NO S/S OF DISTRESS OR SOB NOTED. STILL C/O LOWER BACK PAIN AT THIS TIME. SKIN WARM/DRY TO TOUCH WITH NORMAL COLOR. DRESSING OVER SACRAL AREA REMAINS CLEAN/DRY AND INTACT. DISCUSSED PLAN OF CARE, PAIN MANAGEMENT AND MEDICATION REGIMEN WITH PATIENT AND PATIENT VERBALIZED UNDERSTANDING. PLACED PATIENT ON SAFETY/PRESSURE ULCER PRECAUTIONS AND WILL CONTINUE TO MONITOR. CALL LIGHT LEFT WITHIN REACH.
[2016-09-15] MEDS: ATORVASTATIN 20 MG TAB PO SCH (20:52)
[2016-09-15] MEDS: LORazepam 2 MG/ML VIAL IM/IVP PRN (21:01)
--- NOTE | 2016-09-15 21:30 | NUR ---
ADMINISTERED DUE AND PRN MEDICATIONS FOR C/O PAIN AND ANXIETY MD'S ORDERED WITH EDUCATION GIVEN. PATIENT COMPLYING WITH MEDICATIONS AND TOLERATED WELL. KEPT PATIENT IN COMFORTABLE POSITION/WARM AND WILL CONTINUE TO MONITOR.
[2016-09-16] VITALS: BP 105/63
--- NOTE | 2016-09-16 01:22 | NUR ---
PATIENT ACCIDENTALLY PULLED OUT THE IV LINE ON LT HAND. INSERTED THE NEW ONE ON RT FA G # 24 AND D/C RT FOOT IV. PATIENT TOLERATED WELL AND REMAINED IN STABLE CONDITION. NO APPARENT DISTRESS NOTED. WILL CONTINUE TO MONITOR.
[2016-09-16 04:00] VITALS: BP 120/72
--- NOTE | 2016-09-16 04:30 | NUR ---
PATIENT IS CLINICALLY STABLE WITH UNCHANGED V/S. AM CARE GIVEN WITH LINENS/GOWN CHANGED. WILL CONTINUE TO MONITOR.
[2016-09-16] MEDS: MEROPENEM 500 MG in NACL 0.9% 50 ML IV SCH ×2 (05:01→12:32)
--- NOTE | 2016-09-16 07:20 | NUR ---
ASSUMED CONTINUITY OF CARE. NO SIGNS AND SYMPTOMS OF ACUTE DISTRESS NOTED. INITIAL ASSESSMENT DONE. EXPLAINED DIAGNOSIS, PLAN OF CARE, PAIN MANAGEMENT TEACHING, CONTACT ISOLATION PRECAUTION, USE OF CALL LIGHT/BED/TV/BATHROOM. VERBALIZED UNDERSTANDING. FALL PRECAUTION APPLIED. CALL LIGHT WITHIN REACH.
--- NOTE | 2016-09-16 07:20 | NUR ---
PATIENT RESTED WELL THROUGHOUT THE SHIFT AND REMAINED IN STABLE CONDITION WITHOUT S/S OF DISTRESS NOTED. ENDORSED PLAN OF CARE TO ARIANNE TOLBERT, AT BEDSIDE.
[2016-09-16] MEDS: NACL 0.9% 1,000 ML IV SCH (07:45)
[2016-09-16 08:00] VITALS: BP 127/67
[2016-09-16] MEDS: MORPHINE SULFATE 2 MG/ML SYR IVP PRN ×2 (08:12→12:15)
[2016-09-16] MEDS: PANTOPRAZOLE 40 MG TABEC PO SCH (08:33)
[2016-09-16] MEDS: SACCHAROMYCES 250 MG CAP PO SCH (08:33)
[2016-09-16] MEDS: buPROPion 150 MG TABER PO SCH (08:33)
[2016-09-16] MEDS: PARoxetine 10 MG TAB PO SCH (08:34)
[2016-09-16] MEDS: GABAPENTIN 300 MG CAP PO SCH (08:34)
[2016-09-16] MEDS ORDERED: XARELTO20 MG PO (08:43)
[2016-09-16] MEDS ORDERED: XARELTO15 MG PO (08:43)
[2016-09-16] MEDS ORDERED: MEROPENEM-500 MG/50 IV (08:45)
[2016-09-16] MEDS ORDERED: BD LACTINEX1.4 MG PO (08:46)
[2016-09-16] MEDS ORDERED: CALCIUM CARB/VIT-D 500 MG/200 IU 1 TAB PO SCH (09:00)
--- NOTE | 2016-09-16 09:55 | NUR ---
FAXED CONCURRENT REVIEW TO [phone] PHONE ROD [phone]
--- NOTE | 2016-09-16 10:38 | NUR ---
SS NOTE PER GRETA FROM [facility] ([phone]), THEY WILL DELIVER PT'S MEDICATIONS TONIGHT AND SEND A NURSE TOMORROW MORNING TO SEE HER.
--- NOTE | 2016-09-16 10:45 | NUR ---
EXPLAINED TO PT. AND PT. -ERIK ABOUT DISEASE MANAGEMENT, MD D/C ORDER, D/C INSTRUCTIONS AND TEACHING, MF FOLLOW-UP, MD D/C PRESCRIPTION LIST, PAIN MANAGEMENT TEACHING, PICC LINE CARE. PT. AND PT. -ERIK VERBALIZED UNDERSTANDING.
--- NOTE | 2016-09-16 11:05 | NUR ---
PICC CHARLINE STEELE CAME FOR PT. PICC LINE INSERTION. INFORMED CHARGE NURSE KALEY SALAZAR.
[2016-09-16 12:00] VITALS: BP 118/71
[2016-09-16] MEDS: MUPIROCIN 2% OINT 22 GM TUBE TP SCH (12:14)
[2016-09-16] MEDS ORDERED: POTASSIUM CHLORIDE 10 MEQ TABER PO SCH (12:15)
[2016-09-16] MEDS: CHLORHEXADINE GLUC 2% CLOTH TP SCH (12:15)
--- NOTE | 2016-09-16 12:20 | NUR ---
TOMASZ GONZALEZ CAME INSIDE PT. ROOM AND EXPLAINED TO PT. AND PT. CARLOS CLIFTON ABOUT D/C INSTRUCTIONS AND TEACHING.
--- NOTE | 2016-09-16 13:05 | NUR ---
D/C HOME VIA WHEELCHAIR, ACCOMPANIED BY PT. -ERIK. AWAKE, ALERT, AND ORIENTED X4. SPEECH CLEAR. NO C/O PAIN. IN STABLE CONDITION. INFORMED CHARGE NURSE KALEY SALAZAR.
--- NOTE | 2016-09-17 11:16 | NUR ---
CM NOTE RETRO REVIEW SHEET FAXED TO [facility] / FAX# [phone], ATTN: ROD #[phone] OR [phone]
[2016-10-30] MEDS ORDERED: LEVAQUIN750 MG PO (09:04)
[2017-01-12] MEDS ORDERED: LIORESAL10 MG PO (14:26)
== END 2016-09-16 13:05 | disposition home health service (06) | DRG 871 ==
LOC: MED 13:18 → MTU 17:04
PROVIDERS: ADMIT Family Medicine; ATTEND Family Medicine
PROC: 02HV33Z Insertion of Infusion Device into Superior Vena Cava, Percutaneous Approach (ICD-10-PCS; principal; 2016-09-16)
PROC: B548ZZA Ultrasonography of Superior Vena Cava, Guidance (ICD-10-PCS; 2016-09-16)
DX: A41.9 Sepsis, unspecified organism (principal); J69.0 Pneumonitis due to inhalation of food and vomit; I26.99 Other pulmonary embolism without acute cor pulmonale; J96.01 Acute respiratory failure with hypoxia; I50.43 Acute on chronic combined systolic (congestive) and diastolic (congestive) heart failure; N17.0 Acute kidney failure with tubular necrosis; Z68.41 Body mass index [BMI] 40.0-44.9, adult; N39.0 Urinary tract infection, site not specified; E87.1 Hypo-osmolality and hyponatremia; E44.0 Moderate protein-calorie malnutrition; N12 Tubulo-interstitial nephritis, not specified as acute or chronic; E11.65 Type 2 diabetes mellitus with hyperglycemia; R74.0 Nonspecific elevation of levels of transaminase and lactic acid dehydrogenase [LDH]; R80.9 Proteinuria, unspecified; E83.39 Other disorders of phosphorus metabolism; E87.6 Hypokalemia; E66.01 Morbid (severe) obesity due to excess calories; F41.9 Anxiety disorder, unspecified; F32.9 Major depressive disorder, single episode, unspecified; G89.29 Other chronic pain; M54.5 Low back pain; K21.9 Gastro-esophageal reflux disease without esophagitis; K76.0 Fatty (change of) liver, not elsewhere classified; F99 Mental disorder, not otherwise specified; Z90.710 Acquired absence of both cervix and uterus; Z98.890 Other specified postprocedural states; Z88.6 Allergy status to analgesic agent; Z88.1 Allergy status to other antibiotic agents; Z83.3 Family history of diabetes mellitus; Z80.3 Family history of malignant neoplasm of breast; Z82.49 Family history of ischemic heart disease and other diseases of the circulatory system; Z83.79 Family history of other diseases of the digestive system; Z87.891 Personal history of nicotine dependence

== ENCOUNTER 2016-09-25 17:51 | Emergency (ER) | payer BC ==
[~2016-09-25] VITALS: Ht 147.3 cm; Wt 90.7 kg
[~2016-09-25 17:51] MED LIST changes: -ALBUTEROL0.09 MG/A1 IH; -ALBUTEROL4 MG PO; -ASPIRIN81 M1 PO; -ASPIRIN81 M3 PO; -ATARAX HCL25 MG PO; +ATOR10TA PO; +BEN10 PO; -BENTYL10 MG PO; -BUPROPION HYDR; -BUPROPION SR150 MG PO; -CARISOPRODOL350 M1; -CLARITIN10 MG PO; -CLONAZEPAM1 M1 PO; -COLACE; -DESYREL50 MG PO; +GABA300C PO; -HYDROXYZINE PO; +LACT1.4C PO; -LACTINEX1 TAB.CHEW PO; -LEVAQUIN750 MG PO; -LIPITOR10 MG PO; +MERO500P9 IV; -METHOCARBAMOL750 MG PO; -NEURONTIN100 MG PO; -NEURONTIN300 MG PO; -ONDANSETRON8 M1 PO; +OXYC1TAB PO; +PANT40EC PO; -PANTOPRAZOLE SO40 M1 PO; +PARO30TA62 PO; -PAROXETINE30 M1 PO; -PAXIL10 MG PO; -PERCOCET 5/3251 TAB PO; +PRE.3 PO; -PREDNISONE10 M1 PO; -PREDNISONE20 M1 PO; -PREDNISONE5 M1 PO; -PREMARIN0.3 M1 PO; -PREMARIN0.625 MG PO; -PROAIR HFA0.09 MG/Ac IH; +RIVA15TA1 PO; +RIVA20TA PO; -ROBAXIN500 M1 PO; -SOMA350 M1 PO; -SOMA350 MG PO; -SULFAMETH/TRIME1 TA1 PO; -TRAMADOL50 MG PO; -TRAZADONE HYDR100 MG; -TYLENOL325 M1 PO; -ULTRAM100 MG PO; -WELLBUTRIN SR100 MG PO; -WELLBUTRIN100 MG PO; -ZOLOFT100 MG PO; -ZOLOFT50 M1 PO; -ZOLOFT50 MG PO; +[UNRECOGNIZED DRUG - CODE] PO; +[UNRECOGNIZED DRUG - CODE] PO
[2016-09-25 18:17] VITALS: BP 122/64
--- NOTE | 2016-09-25 21:07 | NUR ---
TO ER BED 8
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
--- NOTE | 2016-09-25 21:40 | NUR ---
PT RESTING IN BED AWATING FOR TEST RESULTS NO S/S OF DISTRESS NOTED AT THIS TIME.
[2016-09-25 22:46] VITALS: BP 97/65
--- NOTE | 2016-09-25 22:46 | NUR ---
Patient discharged with v/s stable. Written and verbal after care instructions given and explained. Patient verbalized understanding. Ambulatory with steady gait. All questions addressed prior to discharge. Advised to follow up with PMD OR RETURN TO ER IF CONDITION WORSENS.
== END 2016-09-25 22:46 | disposition home or self-care (01) ==
LOC: MED 17:51
DX: M79.642 Pain in left hand (principal); M79.671 Pain in right foot; J45.909 Unspecified asthma, uncomplicated; Z88.1 Allergy status to other antibiotic agents; Z88.6 Allergy status to analgesic agent
CPT/HCPCS: 73130; 73630; 99284

== ENCOUNTER 2016-10-25 14:55 | Inpatient (IN) | payer BC ==
[~2016-10-25] VITALS: Ht 147.3 cm; Wt 90.3 kg
[2016-10-25 15:05] VITALS: BP 118/79
--- NOTE | 2016-10-25 16:39 | NUR ---
Patient ambulated to bed 7 with family. RN evaluating patient at bedside.
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
--- NOTE | 2016-10-25 16:48 | NUR ---
Dr. Mckeon evaluating patient at bedside.
[2016-10-25] MEDS ORDERED: HYDROmorphone 1 MG/ML AMP IVP ONE (17:00)
--- NOTE | 2016-10-25 17:11 | NUR ---
injection molding technician at bedside.
[2016-10-25 17:23] LABS: BILIRUBIN,URINE NEGATIVE (NEGATIVE); BLOOD, URINE TRACE-I (NEGATIVE); COLOR,URINE YELLOW (YELLOW); LEUKOCYTE ESTERASE ,URINE 1+ (NEGATIVE); NITRITE, URINE NEGATIVE (NEGATIVE); PH,URINE 5.5 (5.0-9.0); PROTEIN,URINE NEGATIVE (NEGATIVE); UGLUCOSE NEGATIVE (NEGATIVE); UROBILINOGEN,URINE 0.2 EU/dL (0.2 - 1)
[2016-10-25 17:25] LABS: APPEARANCE,URINE SLIGHTLY HAZY (CLEAR)
[2016-10-25 17:31] LABS: RBC,URINE 0-3 /HPF (0-5)
[2016-10-25 17:32] LABS: BACTERIA,URINE 1+ /HPF (None Seen); TRICHOMONAS,URINE Few /HPF (None Seen)
[2016-10-25 17:35] LABS: HEMOGLOBIN 12.2 g/dL (12.0-16.0); MEAN CORPUSCULAR HEMOGLOBIN 27 pg (27-31); MEAN CORPUSCULAR HGB CONC 32 g/dL (33-37); MEAN CORPUSCULAR VOLUME 85 fL (80-94)
[2016-10-25 17:38] LABS: HEMATOCRIT 38.1 % (36-48); RED BLOOD CELL COUNT(AUTO) 4.46 MIL/uL (4.20-5.40); WHITE BLOOD COUNT (AUTO) 16.8 K/uL (4.8-10.8)
[2016-10-25 17:39] LABS: PLATELET COUNT (AUTO) 682 K/uL (140-450)
[2016-10-25 17:45] LABS: ANION GAP 14.6 (8-16); CALCIUM 9.2 mg/dL (8.5-10.1); CARBON DIOXIDE 26.4 mmol/L (21-32)
[2016-10-25 17:48] LABS: BAND % (MANUAL) 3 % (0-8); EOSINOPHILS % (MANUAL) 2 % (0-4); LYMPHOCYTES % (MANUAL) 14 % (20-46); MONOCYTES % (MANUAL) 4 % (5-12); NEUTROPHILS % (MANUAL) 77 (43-65); PLATELET ESTIMATE INCREASED
[2016-10-25 17:50] LABS: ALBUMIN 3.7 g/dL (3.4-5.0); TOTAL BILIRUBIN 0.4 mg/dL (0.0-1.0); TOTAL PROTEIN, SERUM 8.1 g/dL (6.4-8.2)
[2016-10-25] MEDS ORDERED: ONDANSETRON 4 MG/2 ML VIAL IVP ONE (17:50)
[2016-10-25] MEDS ORDERED: HYDROcodone/APAP 5/325 MG 1 TAB TAB PO PRN (18:50)
[2016-10-25] MEDS ORDERED: ACETAMINOPHEN 325 MG TAB PO PRN (18:50)
[2016-10-25] MEDS ORDERED: PIPERACILLIN/TAZOBACTAM 4.5 GM in DEXTROSE 5% 100 ML IV ONE (19:00)
[2016-10-25 19:15] LABS: CHOL/HDL RATIO 4.8 (1-4.5)
[2016-10-25] MEDS ORDERED: DICYCLOMINE 10 MG CAP PO SCH (19:15)
[2016-10-25 19:21] LABS: AMPHETAMINE, URINE NEG. ng/ml (NEG <=1000); BARBITURATE, URINE NEG. ng/ml (NEG <=200); BENZODIAZEPINE, URINE POS. ng/mL (NEG <=200); CANNABINOID, URINE NEG. ng/mL (NEG <=50); COCAINE, URINE NEG. ng/mL (NEG <=300); OPIATE, URINE NEG. ng/mL (NEG <=2000); PHENCYCLIDINE SCREEN,URINE NEG. ng/mL (NEG <=25)
--- NOTE | 2016-10-25 19:28 | NUR ---
Patient will be admitted to care of [facility]. Admited to [facility]. Will go to [id number]. Belongings list completed. Report to CHARLINE GRIFFIN.
--- NOTE | 2016-10-25 19:28 | NUR ---
GAVE REPORT TO CHARLINE GRIFFIN
--- NOTE | 2016-10-25 19:35 | NUR ---
ADMITTED THIS 46 YEAR OLD FEMALE FROM ER PER KEERTHI WITH CC OF LEFT BUTTOCK WOUND, AMBULATED TO BED WITH STEADY GAIT, ASSESSMENT DONE, PAIN 10/10 AT THIS TIME, WILL MEDICATE PRN, VITAL SIGNS STABLE, ORIENTED TO ROOM AND CALL LIGHT, SAFETY MEASURES IN PLACE, CALL LIGHT WITHIN REACH.
[2016-10-25 19:43] LABS: FREE T4 (FREE THYROXINE) 0.85 ng/dL (0.76-1.46); THYROID STIMULATING HORMONE 2.6 uIU/mL (0.34-3.76)
[2016-10-25 20:00] VITALS: BP 112/67
--- NOTE | 2016-10-25 20:00 | NUR ---
PT SAID [facility]CO WILL NOT WORK FOR HER PAIN, PAGED DR BALL WITH NEW ORDERS, SANDWICH PROVIDED, WITH GOOD APPETITE, ALL NEEDS ATTENDED.
[2016-10-25] MEDS ORDERED: PIPERACILLIN/TAZOBACTAM 2.25 GM VIAL IV ONE (20:03)
[2016-10-25] MEDS: NACL 0.9% 1,000 ML IV SCH (20:06)
[2016-10-25] MEDS: MORPHINE SULFATE 2 MG/ML SYR IVP PRN (20:50)
[2016-10-25] MEDS: ONDANSETRON 4 MG/2 ML VIAL IVP PRN (20:50)
[2016-10-25] MEDS: ATORVASTATIN 20 MG TAB PO SCH (20:55)
[2016-10-25] MEDS: GABAPENTIN 300 MG CAP PO SCH (20:55)
[2016-10-25] MEDS ORDERED: PARoxetine 10 MG TAB PO SCH (21:00)
[2016-10-25] MEDS ORDERED: BUPROPION HCL 150 MG PO SCH (21:00)
--- NOTE | 2016-10-25 21:00 | NUR ---
PT ABLE TO REPOSITION SELF, RT AC IV LINE POSITIONAL, NEW IV LINE STARTED AT LEFT HAND GAUGE 22 WITH GOOD BLOOD RETURN, IVF OF NS AT 125ML/H RESUMED, MEDICATED PRN WITH MORPHINE IVP ORDERED, MONITORED CLOSELY.
[2016-10-25] MEDS ORDERED: LORazepam 2 MG/ML VIAL IM/IVP SCH (21:20)
[2016-10-26] VITALS (8 sets, daily range): BP systolic 90–123; BP diastolic 51–69
--- NOTE | 2016-10-26 | NUR ---
PT AWAKE, VITAL SIGNS STABLE, DENIES ANY PAIN, COMPOSITE DRESSING APPLIED TO LEFT BUTTOCK WOUNDS, MEDICATED WITH ATIVAN IVP ORDERED FOR INSOMNIA AND ANXIETY, DUE PAXIL NOT GIVEN PT SAID SHES TAKING PROZAC NOW INSTEAD OF PAXIL, WILL BRING THE PRESCRIPTION BOTTLE IN THE MORNING, WILL ENDORSE TO AM SHIFT, IVF INFUSING WELL, CONTINUE TO MONITOR CLOSELY.
[2016-10-26] MEDS: NACL 0.9% 1,000 ML IV SCH ×4 (02:48→18:48)
[2016-10-26] MEDS: MORPHINE SULFATE 2 MG/ML SYR IVP PRN ×3 (04:09→16:37)
--- NOTE | 2016-10-26 04:20 | NUR ---
PT AMBULATED TO BR WITH STEADY GAIT AND VOIDED FREELY, VITAL SIGNS STABLE, MEDICATED PRN FOR PAIN, SCD'S APPLIED TO BLE, MONITORED CLOSELY.
[2016-10-26 06:08] LABS: HEMATOCRIT 34.3 % (36-48); HEMOGLOBIN 11.3 g/dL (12.0-16.0); MEAN CORPUSCULAR HEMOGLOBIN 28 pg (27-31); MEAN CORPUSCULAR HGB CONC 33 g/dL (33-37); MEAN CORPUSCULAR VOLUME 85 fL (80-94); PLATELET COUNT (AUTO) 614 K/uL (140-450); RED BLOOD CELL COUNT(AUTO) 4.03 MIL/uL (4.20-5.40); RED CELL DISTRIBUTION WIDTH 14.1 % (11.6-13.7); WHITE BLOOD COUNT (AUTO) 16.4 K/uL (4.8-10.8)
--- NOTE | 2016-10-26 06:10 | NUR ---
ACCOMPANIED DR ORTIZ IN THE ROOM TO CHECKED PT LEFT BUTTOCKS WOUND, PT IN NO DISTRESS AT THIS TIME, IVF INFUSING WELL, MONITORED CLOSELY.
[2016-10-26 06:41] LABS: CALCIUM 8.3 mg/dL (8.5-10.1); CARBON DIOXIDE 28.1 mmol/L (21-32); MAGNESIUM 2.1 mg/dL (1.8-2.4); POTASSIUM 4.1 mmol/L (3.5-5.1)
[2016-10-26 06:47] LABS: BAND % (MANUAL) 8 % (0-8); LYMPHOCYTES % (MANUAL) 22 % (20-46); MONOCYTES % (MANUAL) 5 % (5-12); NEUTROPHILS % (MANUAL) 65 (43-65)
--- NOTE | 2016-10-26 07:20 | NUR ---
RECEIVED PT IN BED AWAKE, ALERT, ORIENTEDX4. NO SOB NOTED. DENIES ANY PAIN OR DISCOMFORT AT THIS TIME. POSITIVE BOWEL SOUNDS NOTED ON FOUR QUADRANTS. PT AMBULATORY. CALL LIGHT WITHIN REACH. SAFETY PRECAUTION IN PLACE.
--- NOTE | 2016-10-26 07:29 | NUR ---
RECEIVED PT IN BED, AWAKE, ALERT ORIENTEDX4. NO SOB NOTED. DENIES ANY PAIN OR DISCOMFORT AT THIS TIME. POSITIVE BOWEL SOUNDS NOTED ON FOUR QUADRANTS.DENIES ANY PAIN ON BOWEL AND BLADDER ELIMINATION.SKIN INTACT. BED JORGENSEN OFFERED NEEDED. CALL LIGHT WITHIN REACH. SAFETY PRECAUTION IN PLACE.
--- NOTE | 2016-10-26 07:29 | NUR ---
PT AWAKE, NO SIGNS OF DISTRESS, REPORT GIVEN TO CHARLINE HANKINS FOR CONTINUITY OF CARE.
[2016-10-26] MEDS ORDERED: NITROFURANTOIN 100 MG CAP PO SCH (08:00)
--- NOTE | 2016-10-26 08:12 | NUR ---
PATIENT HAS BEEN SCREENED AND CATEGORIZED HIGH NUTRITION RISK. PATIENT WILL BE SEEN WITHIN 1-2 DAYS OF ADMISSION. 10/26/16-10/27/[address]
[2016-10-26] MEDS ORDERED: CALCIUM ACETATE 667 MG TAB PO SCH ×2 (08:30→09:00)
--- NOTE | 2016-10-26 08:30 | NUR ---
DR. ORTIZ AWARE OF PHOS PHOSPHORUS 5.0.
[2016-10-26] MEDS ORDERED: CLINDAMYCIN 600 MG in DEXTROSE 5% 50 ML IV SCH (09:00)
--- NOTE | 2016-10-26 09:00 | NUR ---
TREATMENT AND DRESSING CHANGE DONE ON PT'S BUTTOCK AREA. KEPT CLEAN, DRY AND COMFORTABLE.
[2016-10-26] MEDS: DOCUSATE SODIUM 100 MG GELCAP PO SCH (09:05)
[2016-10-26] MEDS: FLUoxetine 20 MG CAP PO SCH (09:05)
[2016-10-26] MEDS: buPROPion 150 MG TABER PO SCH ×2 (09:05→20:15)
[2016-10-26] MEDS: LEVOFLOXACIN 500 MG/D5W PREMIX 100 ML IV SCH (09:09)
[2016-10-26] MEDS: GABAPENTIN 300 MG CAP PO SCH ×4 (09:09→20:16)
[2016-10-26] MEDS: ESTROGENS CONJUGATED 0.3 MG TAB PO SCH (09:43)
[2016-10-26] MEDS: SILVER SULFADIAZINE 1% 50 GM JAR TP SCH (09:43)
[2016-10-26] MEDS: CLINDAMYCIN 600 MG in DEXTROSE 5% 50 ML IV SCH ×2 (09:44→16:35)
--- NOTE | 2016-10-26 10:29 | NUR ---
STEPHANIE FROM RADIOLOGY DEPT CAME TO SHIRT CLEANER PT FOR CT SCAN OF PELVIS W/O CONTRAST. PT ON STABLE CONDITION DENIES ANY PAIN AT THIS TIME.
--- NOTE | 2016-10-26 10:29 | NUR ---
0969 CALL RECEIVED FROM ANN AT [facility] WITH INFORMATION THAT ROD IS THE ASSIGNED CM AND CONTACT PHONE #[phone] AND FAX# [phone]. REQUESTED THAT PT BE INFORMED THAT [facility] IS AN OUT OF NETWORK FACILITY AND PROVIDED CUSTOMER SERVICE # OF [phone] FOR PT TO CALL REGARDING IN NETWORK FACILITIES.
--- NOTE | 2016-10-26 10:45 | NUR ---
PT CAME BACK FROM RADIOLOGY DEPT. ASSISTED BY STEPHANIE. TRANSFERRED TO BED SAFELY AND COMFORTABLY. APPLIED SCD. NEEDS ATTENDED. DENIES PAIN AT THIS TIME. PT ON STABLE CONDITION.
[2016-10-26] MEDS ORDERED: COMPOSITE DRESSING TP PRN (13:10)
[2016-10-26] MEDS ORDERED: THERAHONEY GEL 42.5 GM TP PRN (13:10)
--- NOTE | 2016-10-26 14:32 | NUR ---
RECEIVED A CALL FROM MITCH MALAVE COORDINATOR FROM [employer]. PHONE [phone]. HE SAID THE REFERENCE NO IS [id number]. FAXED INITIAL REVIEW TO [phone] [facility] [phone]
--- NOTE | 2016-10-26 15:05 | NUR ---
10/26/16 RD INITIAL ASSESSMENT COMPLETED PLEASE REFER TO NUTRITION ASSESSMENT UNDER CARE ACTIVITY FOR ESTIMATED NUTRITIONAL NEEDS. RD RECOMMENDATIONS: 1. WHEN MEDICALLY APPROPRIATE ADVANCE DIET TO REGULAR. 2. INCREASE PROTEIN NEEDS FOR WOUND HEALING. 3. RD WILL F/U 3-5 DAYS; MODERATE RISK. STACY GREOGRIO RD
--- NOTE | 2016-10-26 16:00 | NUR ---
PT WAS SEEN BY DR ORTIZ EXPLAINED TO PT REASON FOR NPO AND THAT DR RAINEY (SURGEON) IS COMING TO SEE PT. PT VERBALIZED UNDERSTANDING.
[2016-10-26] MEDS: CALCIUM ACETATE 667 MG TAB PO SCH (16:36)
--- NOTE | 2016-10-26 18:00 | NUR ---
DR. RAINEY CAME TO SEE PT. MADE PT AWARE OF SURGICAL PROCEDURE TOMORROW FOR SHARP EXCISIONAL DEBRIDEMENT OF LEFT BUTTOCK NECROTIC ULCER. EXPLAINED PROCEDURE TO PT. PT VERBALIZED UNDERSTANDING. CONSENT SIGNED AND IN TO CHART.
--- NOTE | 2016-10-26 19:36 | NUR ---
PT ALERT, AWAKE, ORIENTED X4. EATING DINNER, ON REGULAR DIET. DENIES ANY PAIN AT THIS TIME. NO SOB NOTED. ENDORSED TO UPCOMING SHIFT THAT PT WILL BE NPO POST MIDNIGHT FOR SURGERY TOMORROW MORNING. PT ON STABLE CONDITION.
--- NOTE | 2016-10-26 19:37 | NUR ---
RECEIVED PT IN STABLE CONDITION FROM CHARLINE HANKINS. NO SOB, NO SIGNS OF DISTRESS. PT ON 2L O2 NC. PT IS AOX4, AMBULATORY. PT C/O PAIN, WILL MEDICATE PER MD ORDER. IV TO RT HAND 22G PATENT, ASYMPTOMATIC, INTACT, IVF RUNNING. PT C/O IV BEEPING ALL DAY WITH POSITIONAL PLACEMENT, TOLD PT I WOULD TRY TO GAIN ANOTHER IV ACCESS AT A LATER TIME. PT VERBALIZED UNDERSTANDING. PT WITH OPEN WOUND TO LT BUTTOCK AND WOUND TO LT UPPER BUTTOCK/SACRAL AREA. DRESSINGS DRY AND INTACT. SCDS IN PLACE. EDUCTED PT THAT SHE IS NOT TO EAT OR DRINK AFTER MIDNIGHT FOR PROCEDURE TOMORROW, PT VERBALIZED UNDERSTANDING. PLAN OF CARE DISCUSSED WITH PT. SAFETY MEASURES IN PLACE. CALL LIGHT WITHIN REACH. WILL CONTINUE TO MONITOR.
[2016-10-26] MEDS: ATORVASTATIN 20 MG TAB PO SCH (20:15)
--- NOTE | 2016-10-26 20:17 | NUR ---
PT TOLERATED DUE MEDS WELL. NO SOB, NO SIGNS OF DISTRESS. IV SITE ASYMPTOMATIC, INTACT, PATENT, IVF RUNNING. PLAN OF CARE DISCUSSED WITH PT. SAFETY MEASURES IN PLACE. CALL LIGHT WITHIN REACH. WILL CONTINUE TO MONITOR.
[2016-10-26] MEDS: ONDANSETRON 4 MG/2 ML VIAL IVP PRN (21:32)
--- NOTE | 2016-10-26 21:36 | NUR ---
PT REQUESTED SLEEP AID DUE TO INSOMNIA, PAGED MD Case RIGGS DONOR RELATIONS ASSOCIATE FOR MD BALL. WAITING FOR CALL BACK.
[2016-10-26] MEDS: HYDROmorphone 1 MG/ML AMP IVP PRN (21:37)
--- NOTE | 2016-10-26 21:37 | NUR ---
MEDICATED PT FOR PAIN, NAUSEA. PT TOLERATED WELL. STARTED NEW IV TO LT AC 22G PATENT, ASYMPTOMATIC, INTACT, IVF RUNNING. NO SOB, NO SIGNS OF DISTRESS. IV SITE ASYMPTOMATIC, INTACT, PATENT, IVF RUNNING. PLAN OF CARE DISCUSSED WITH PT. SAFETY MEASURES IN PLACE. CALL LIGHT WITHIN REACH. WILL CONTINUE TO MONITOR.
--- NOTE | 2016-10-26 22:57 | NUR ---
SPOKE WITH MD Case RIGGS. STATED ORDERS WILL BE PUT IN FOR SLEEP AID. WILL F/U.
[2016-10-26] MEDS: ZOLPIDEM 10 MG TAB PO SCH (23:49)
[2016-10-27] VITALS: BP 116/55
--- NOTE | 2016-10-27 | NUR ---
MEDICATED PT FOR INSOMNIA. PT TOLERATED WELL. PT ON 2L O2 NC. NO SOB, NO SIGNS OF DISTRESS. IV SITE ASYMPTOMATIC, INTACT, PATENT, IVF RUNNING. PLAN OF CARE DISCUSSED WITH PT. SAFETY MEASURES IN PLACE. CALL LIGHT WITHIN REACH. WILL CONTINUE TO MONITOR.
[2016-10-27] MEDS: HYDROmorphone 1 MG/ML AMP IVP PRN ×2 (00:38→17:10)
[2016-10-27] MEDS: CLINDAMYCIN 600 MG in DEXTROSE 5% 50 ML IV SCH ×3 (00:38→16:25)
--- NOTE | 2016-10-27 02:39 | NUR ---
PT ASLEEP IN BED. PT ON 2L O2 NC. NO SOB, NO SIGNS OF DISTRESS. IV SITE ASYMPTOMATIC, INTACT, PATENT, IVF RUNNING. SAFETY MEASURES IN PLACE. CALL LIGHT WITHIN REACH. WILL CONTINUE TO MONITOR.
[2016-10-27 04:00] VITALS: BP 107/62
--- NOTE | 2016-10-27 04:10 | NUR ---
VS STABLE. PT ON 2L O2 NC. NO SOB, NO SIGNS OF DISTRESS. IV SITE ASYMPTOMATIC, INTACT, PATENT, IVF RUNNING. PLAN OF CARE DISCUSSED WITH PT. SAFETY MEASURES IN PLACE. CALL LIGHT WITHIN REACH. WILL CONTINUE TO MONITOR.
[2016-10-27 06:16] LABS: BASOPHILS # (AUTO) 0.1 K/uL (0.00-0.22); BASOPHILS % (AUTO) 0.9 % (0.0-2.0); EOSINOPHILS # (AUTO) 0.2 K/uL (0-0.4); EOSINOPHILS % (AUTO) 1.3 % (0.0-4.0); HEMATOCRIT 33.9 % (36-48); LYMPHOCYTES # (AUTO) 3.1 K/uL (2.5-16.5); LYMPHOCYTES % (AUTO) 22.2 % (20.5-51.1); MEAN CORPUSCULAR HEMOGLOBIN 28 pg (27-31); MEAN CORPUSCULAR HGB CONC 32 g/dL (33-37); MEAN CORPUSCULAR VOLUME 86 fL (80-94); MONOCYTES % (AUTO) 6.9 % (1.7-9.3); NEUTROPHILS # (AUTO) 9.4 K/uL (1.8-7.7); NEUTROPHILS % (AUTO) 68.7 % (42.2-75.2); PLATELET COUNT (AUTO) 599 K/uL (140-450); RED BLOOD CELL COUNT(AUTO) 3.96 MIL/uL (4.20-5.40); RED CELL DISTRIBUTION WIDTH 13.7 % (11.6-13.7); WHITE BLOOD COUNT (AUTO) 13.8 K/uL (4.8-10.8)
[2016-10-27 06:34] LABS: ANION GAP 9.3 (8-16); CALCIUM 8.7 mg/dL (8.5-10.1); CARBON DIOXIDE 32.7 mmol/L (21-32); CREATININE 0.9 mg/dL (0.6-1.3)
[2016-10-27 06:42] LABS: MAGNESIUM 1.9 mg/dL (1.8-2.4); PHOSPHORUS 4.8 mg/dL (2.5-4.9)
[2016-10-27 07:17] LABS: INR 1.1 (0.8-1.2); PARTIAL THROMBOPLASTIN TIME 27.6 secs (22-35.6); PROTHROMBIN TIME 10.3 secs (10.8-13.4)
--- NOTE | 2016-10-27 07:19 | NUR ---
ENDORSED PT IN STABLE CONDITION TO CHARLINE HANKINS. ALL NEEDS HAVE BEEN MET AT THIS TIME.
[2016-10-27] MEDS: NACL 0.9% 1,000 ML IV SCH ×3 (07:40→18:40)
[2016-10-27 08:00] VITALS: BP 133/49
[2016-10-27] MEDS: CALCIUM ACETATE 667 MG TAB PO SCH ×2 (08:00→16:25)
--- NOTE | 2016-10-27 08:10 | NUR ---
CHECKED PT'S BP, 133/49 IN 92. PT ASKING FOR PAIN MEDICATION DILAUDID, PAIN RAITING 02/[address] ORTIZ AWARE DUE TO BP DIASTOLIC ON LOW.
--- NOTE | 2016-10-27 08:11 | NUR ---
DR. ORTIZ MADE AN ORDER FOR DILAUDID 0.5MG X1. DUE TO LOW DIASTOLIC BLOOD PRESSURE
[2016-10-27] MEDS ORDERED: HYDROmorphone 1 MG/ML AMP IVP SCH ×2 (08:12→15:23)
[2016-10-27] MEDS: DOCUSATE SODIUM 100 MG GELCAP PO SCH (09:00)
[2016-10-27] MEDS: buPROPion 150 MG TABER PO SCH ×2 (09:00→22:02)
[2016-10-27] MEDS: GABAPENTIN 300 MG CAP PO SCH ×4 (09:00→22:01)
[2016-10-27] MEDS: FLUoxetine 20 MG CAP PO SCH (09:00)
[2016-10-27] MEDS: ESTROGENS CONJUGATED 0.3 MG TAB PO SCH (09:00)
[2016-10-27] MEDS: SILVER SULFADIAZINE 1% 50 GM JAR TP SCH (09:11)
[2016-10-27] MEDS: THERAHONEY GEL 42.5 GM TP SCH (09:12)
[2016-10-27] MEDS: LEVOFLOXACIN 500 MG/D5W PREMIX 100 ML IV SCH (09:35)
[2016-10-27 11:30] VITALS: BP 84/45
--- NOTE | 2016-10-27 11:50 | NUR ---
PT AWAKE, ALERT, ORIENTED X4. DENIES ANY PAIN OR DISCOMFORT AT THIS TIME. KEENA OLIVIER FROM SURGERY CAME TO GUEST EXPERIENCE CAPTAIN PT. LATEST VITAL SIGNS TAKEN AND RECORDED. ENDORSED TO OR NURSE.
[2016-10-27] MEDS ORDERED: SEVOFLURANE 250 ML BTL INH ONE (11:55)
[2016-10-27] MEDS ORDERED: DEXAMETHASONE 4 MG/ML VIAL ONE (11:55)
[2016-10-27] MEDS ORDERED: PROPOFOL 200 MG/20 ML VIAL IV ONE (11:55)
[2016-10-27] MEDS ORDERED: ONDANSETRON 4 MG/2 ML VIAL ONE (11:55)
[2016-10-27] MEDS ORDERED: fentaNYL 0.05 MG/ML VIAL ONE (12:14)
[2016-10-27] MEDS ORDERED: MIDAZOLAM 2 MG/2 ML VIAL ONE (12:14)
[2016-10-27] MEDS ORDERED: MEPERIDINE 50 MG/ML SYR ONE (12:15)
[2016-10-27] MEDS ORDERED: BUPIVACAINE-MPF/EPI 0.25% 30 ML VIAL INJ ONE (12:15)
--- NOTE | 2016-10-27 12:36 | NUR ---
FAXED CONCURRENT REVIEW TO [facility] [phone] [facility] [phone]
[2016-10-27] MEDS ORDERED: LIDOCAINE/EPI MPF 1%1:200000 30 ML VIAL INJ ONE (12:38)
[2016-10-27] MEDS: LACTATED RINGERS 1,000 ML IV SCH ×2 (12:42→21:02)
[2016-10-27] MEDS ORDERED: diphenhydrAMINE 50 MG/ML VIAL IVP PRN (12:45)
[2016-10-27] MEDS ORDERED: ONDANSETRON 4 MG/2 ML VIAL IVP PRN (12:45)
[2016-10-27] MEDS ORDERED: MEPERIDINE 25 MG/ML SYR IVP PRN (12:45)
[2016-10-27] MEDS: COMPOSITE DRESSING TP SCH (13:00)
--- NOTE | 2016-10-27 13:45 | NUR ---
PT CAME BACK FROM OR. NO SOB NOTED. DENIES ANY PAIN OR DISCOMFORT AT THIS TIME. HOOKED TO OS AT 2LPM VIA NC. PT ALERT AWAKE, ORIENTED X4. INITIAL VITAL SIGNS FOLLOWS BP 111/59 ND 94 RR 19 T 97.5. PT ON STABLE CONDITION
[2016-10-27] MEDS ORDERED: metroNIDAZOLE 500 MG TAB PO SCH (15:30)
--- NOTE | 2016-10-27 16:40 | NUR ---
CLARIFIED WITH DR. ORTIZ REGARDING ORDER FOR DILAUDID 1MG IVP SINCE PT'S BLOOD PRESSURE HAS BEEN RUNNING LOW. SAID HE WILL MAKE AN ORDER FOR 0.5MG DILAUDID.
[2016-10-27] MEDS ORDERED: HYDROcodone/APAP 7.5/325 MG 1 TAB PO PRN (16:45)
[2016-10-27 17:06] VITALS: BP 106/56
--- NOTE | 2016-10-27 19:22 | NUR ---
RECEIVED FROM AM RN IN BED SLEEPING. WAKES UP WHEN TOUCHED. NO COMPLAINTS AT THIS TIME. NO SOB. CALL LIGHT WITH IN REACH AND CARE PLANS FOR THE NIGHT DISCUSSED WITH HER. ENCOURAGED TO CALL FOR ANY HELP SHE MAY NEED OR IF IN PAIN. IVF SITE TO LEFT AC INTACT AND NO INFILTRATION NOTED WITH NS AT 125 ML/H. ISOLATION PRECAUTIONS OBSERVED RT HX. ESBL BLOOD AND URINE AND WITH MRSA NARES AND WOUND. SEQUENTIALS IN PLACE BILATERALLY.
--- NOTE | 2016-10-27 19:37 | NUR ---
ENDORSED TO NEXT SHIFT FOR CONTINUITY OF CARE. PT ON STABLE CONDITION. KEPT CLEAN, DRY AND COMFORTABLE, NEEDS ATTENDED.
[2016-10-27] MEDS: ATORVASTATIN 20 MG TAB PO SCH (22:01)
[2016-10-27] MEDS: ZOLPIDEM 10 MG TAB PO SCH (22:02)
--- NOTE | 2016-10-27 23:07 | NUR ---
SLEEPING. P.O. MEDS TAKEN WELL EARLIER. NO COMPLAINTS DONE. ASSISTED TO RESTROOM TO URINATE. NO SOB. KEPT WARM AND COMFORTABLE. DRESSING TO BUTTOCKS INTACT AND NO BLEEDING NOTED. CALL LIGHT WITH IN REACH. A/O X 4.
[2016-10-28 00:04] VITALS: BP 98/57
[2016-10-28] MEDS: CLINDAMYCIN 600 MG in DEXTROSE 5% 50 ML IV SCH ×2 (00:25→10:20)
[2016-10-28] MEDS: HYDROmorphone 1 MG/ML AMP IVP PRN ×5 (00:35→20:53)
--- NOTE | 2016-10-28 00:35 | NUR ---
PT. WOKE UP AND REQUESTED FOR DILAUDID 0.5 MG REQUESTED. MEDICATED. PT. ABLE TO VERBALIZE WELL. A/O X 4. DRESSSING TO BUTTOCKS S/P I AND D TODAY INTACT AND NO BLEEDING.
--- NOTE | 2016-10-28 01:44 | NUR ---
SLEEPING. NO RESTLESSNESS NOTED.ABLE TO USE CALL LIGHT FOR HELP.
[2016-10-28] MEDS: NACL 0.9% 1,000 ML IV SCH ×3 (02:48→18:48)
--- NOTE | 2016-10-28 04:03 | NUR ---
PT. SLEEPING .ABLE TO TURN SELF TO SIDES AND FACING BED POSITION. A/O X 4. ROM X 4. CLEAR SPEECH.
[2016-10-28] MEDS: LACTATED RINGERS 1,000 ML IV SCH ×2 (04:22→13:42)
[2016-10-28 06:37] LABS: BASOPHILS # (AUTO) 0.1 K/uL (0.00-0.22); BASOPHILS % (AUTO) 0.5 % (0.0-2.0); EOSINOPHILS # (AUTO) 0.1 K/uL (0-0.4); EOSINOPHILS % (AUTO) 0.9 % (0.0-4.0); HEMATOCRIT 32.5 % (36-48); HEMOGLOBIN 10.5 g/dL (12.0-16.0); LYMPHOCYTES % (AUTO) 15.9 % (20.5-51.1); MEAN CORPUSCULAR HEMOGLOBIN 28 pg (27-31); MEAN CORPUSCULAR HGB CONC 32 g/dL (33-37); MEAN CORPUSCULAR VOLUME 86 fL (80-94); MONOCYTES # (AUTO) 0.8 K/uL (0.8-1.0); MONOCYTES % (AUTO) 6.5 % (1.7-9.3); NEUTROPHILS # (AUTO) 9.9 K/uL (1.8-7.7); NEUTROPHILS % (AUTO) 76.2 % (42.2-75.2); RED BLOOD CELL COUNT(AUTO) 3.79 MIL/uL (4.20-5.40); RED CELL DISTRIBUTION WIDTH 13.5 % (11.6-13.7); WHITE BLOOD COUNT (AUTO) 12.9 K/uL (4.8-10.8)
[2016-10-28 07:00] LABS: ANION GAP 9.9 (8-16); CALCIUM 8.6 mg/dL (8.5-10.1); CARBON DIOXIDE 29.8 mmol/L (21-32); CREATININE 0.7 mg/dL (0.6-1.3); POTASSIUM 3.7 mmol/L (3.5-5.1)
[2016-10-28 07:01] LABS: PLATELET COUNT (AUTO) 654 K/uL (140-450)
--- NOTE | 2016-10-28 07:27 | NUR ---
ENDORSED TO THE NEXT RN FOR CONTINUITY OF CARE. AWAKE AND ALERT. NO SOB. ABLE TO VERBALIZE NEEDS WELL. DRESSING TO BUTTOCK INTACT.ROM X 4.
[2016-10-28 08:47] LABS: MAGNESIUM 2.1 mg/dL (1.8-2.4); PHOSPHORUS 3.9 mg/dL (2.5-4.9)
[2016-10-28] MEDS: LEVOFLOXACIN 500 MG/D5W PREMIX 100 ML IV SCH (09:00)
[2016-10-28] MEDS: ESTROGENS CONJUGATED 0.3 MG TAB PO SCH (09:00)
[2016-10-28] MEDS: THERAHONEY GEL 42.5 GM TP SCH (09:00)
[2016-10-28] MEDS: SILVER SULFADIAZINE 1% 50 GM JAR TP SCH (09:00)
[2016-10-28] MEDS ORDERED: RIVAROXABAN 15 MG TAB PO SCH (09:09)
[2016-10-28] MEDS: GABAPENTIN 300 MG CAP PO SCH ×4 (10:19→20:58)
[2016-10-28] MEDS: CALCIUM ACETATE 667 MG TAB PO SCH ×2 (10:20→16:53)
[2016-10-28] MEDS: DOCUSATE SODIUM 100 MG GELCAP PO SCH (10:21)
[2016-10-28] MEDS: FLUoxetine 20 MG CAP PO SCH (10:23)
[2016-10-28] MEDS: buPROPion 150 MG TABER PO SCH ×2 (10:24→20:59)
[2016-10-28] MEDS: COMPOSITE DRESSING TP SCH (13:08)
--- NOTE | 2016-10-28 13:36 | NUR ---
FAXED CONCURRENT REVIEW TO [facility] [phone] PHONE [phone] OR ROD [phone]
[2016-10-28 14:22] VITALS: BP 125/78
--- NOTE | 2016-10-28 14:40 | NUR ---
SPOKE WITH FRIEDA DEPARTMENTAL BUYER FROM [facility], . HE SAID FOR HOME HEALTH, THE HOME HEALTH SHOULD CALL INTAKE AT [phone].
--- NOTE | 2016-10-28 15:51 | NUR ---
SS NOTE: SENT PT INFORMATION TO [facility] I SPOKE WITH OLIVIER FROM [facility] ([phone]). SHE STATED THAT SHE HAS TO CALL [facility] TO RUN PT'S BENEFITS BEFORE THEY CAN DETERMINE IF THEY ARE ABLE TO FOLLOW UP WITH PT. SHE ALSO STATED THAT SHE WILL CALL ME BACK.
--- NOTE | 2016-10-28 18:50 | NUR ---
PT WITH PRN DILAUDID IV WITH GOOD PAIN RELIEF.DRSG TO SACRAL AREA CHANGED PER DRS ORDER AND D/I.TAKING DIET WELL.CONTINUE MONITOR.CALL MONTALVO IN PLACE.
[2016-10-28] MEDS: RIVAROXABAN 15 MG TAB PO SCH (19:14)
--- NOTE | 2016-10-28 19:15 | NUR ---
RECEIVED PT FROM CARLOS A PHARMACEUTICAL WORKER PT IS AAOX4 AMBULATORY IV ON LEFT AC INFUSING WELL LEFT BUTTOCK DRESSING DRY AND ITACT NOT DISTRESS NOTED AT THIS TIME INITIAL ASSESSMENT DONE
[2016-10-28 20:00] VITALS: BP 90/58
[2016-10-28] MEDS: ZOLPIDEM 10 MG TAB PO SCH (20:58)
[2016-10-28] MEDS: ATORVASTATIN 20 MG TAB PO SCH (20:59)
[2016-10-28] MEDS ORDERED: MAGNESIUM HYDROXIDE 2400 MG/30 ML UDC PO PRN (21:30)
--- NOTE | 2016-10-28 21:30 | NUR ---
AFTER PAIN MEDIC GIVEN PT SLEEPS WELL;, NOT DISTRESS NOTED
--- NOTE | 2016-10-29 01:27 | NUR ---
PT REPOSITIONED Q2H IV ON LEFT AC INFUSING WELL., NOT DISTRESS NOTED VOIDING WELL NOT PAIN NOTEDAT THIS TIME.
--- NOTE | 2016-10-29 03:25 | NUR ---
PT DENIES ANY PAIN AT THIS TIME , PT WILL BE ENDORSED TO [place] FOR CONTINUITY OF CARE
[2016-10-29] MEDS: HYDROcodone/APAP 10/325 MG 1 TAB TAB PO PRN ×3 (03:55→14:08)
--- NOTE | 2016-10-29 04:09 | NUR ---
PT COMPLAINED OF PAIN 01/11. MEDICATED WITH PAIN MED PER MD ORDERED.
--- NOTE | 2016-10-29 06:06 | NUR ---
EYES CLOSED, RESTING QUIETLY, BREATHING EVEN AND UNLABORED. CALL LIGHT WITHIN REACH.
[2016-10-29] MEDS: NACL 0.9% 1,000 ML IV SCH ×2 (06:20→13:15)
[2016-10-29 06:26] LABS: BASOPHILS # (AUTO) 0.1 K/uL (0.00-0.22); BASOPHILS % (AUTO) 1.4 % (0.0-2.0); EOSINOPHILS # (AUTO) 0.2 K/uL (0-0.4); EOSINOPHILS % (AUTO) 2.3 % (0.0-4.0); HEMATOCRIT 33.5 % (36-48); LYMPHOCYTES # (AUTO) 2.1 K/uL (2.5-16.5); LYMPHOCYTES % (AUTO) 22.8 % (20.5-51.1); MEAN CORPUSCULAR HEMOGLOBIN 28 pg (27-31); MEAN CORPUSCULAR HGB CONC 33 g/dL (33-37); MEAN CORPUSCULAR VOLUME 85 fL (80-94); MONOCYTES # (AUTO) 0.8 K/uL (0.8-1.0); MONOCYTES % (AUTO) 9.3 % (1.7-9.3); NEUTROPHILS # (AUTO) 5.9 K/uL (1.8-7.7); NEUTROPHILS % (AUTO) 64.2 % (42.2-75.2); PLATELET COUNT (AUTO) 673 K/uL (140-450); RED BLOOD CELL COUNT(AUTO) 3.93 MIL/uL (4.20-5.40); RED CELL DISTRIBUTION WIDTH 13.8 % (11.6-13.7); WHITE BLOOD COUNT (AUTO) 9.1 K/uL (4.8-10.8)
[2016-10-29 06:35] LABS: MAGNESIUM 1.8 mg/dL (1.8-2.4); PHOSPHORUS 4.6 mg/dL (2.5-4.9)
[2016-10-29 06:41] LABS: ANION GAP 9.3 (8-16); CALCIUM 8.7 mg/dL (8.5-10.1); CARBON DIOXIDE 30.1 mmol/L (21-32); CREATININE 0.8 mg/dL (0.6-1.3); POTASSIUM 3.4 mmol/L (3.5-5.1)
--- NOTE | 2016-10-29 07:20 | NUR ---
ENDORSED REPORT TO DAY SHIFT NURSE FOR CONTINUITY OF CARE. PT IN STABLE CONDITION.
--- NOTE | 2016-10-29 07:30 | NUR ---
RECEIVED ON BED AAOX4. NO SOB NOTED. NO C/O PAIN AT THIS TIME. IV TO LT FOREARM PATENT AND INTACT. CHEST CLEAR. ABDOMEN SOFT, BOWEL SOUNDS PRESENT. NO EDEMA NOTED. DRESSING TO LEFT BUTTOCK WOUND DRY AND INTACT. INSTRUCTED PT TO CALL FOR ASSISTANCE, CALL LIGHT WITHIN REACH. PT VERBALIZED UNDERSTANDING.
[2016-10-29 08:00] VITALS: BP 99/61
[2016-10-29] MEDS: SILVER SULFADIAZINE 1% 50 GM JAR TP SCH (09:00)
[2016-10-29] MEDS: THERAHONEY GEL 42.5 GM TP SCH (09:00)
[2016-10-29] MEDS: LEVOFLOXACIN 500 MG/D5W PREMIX 100 ML IV SCH (09:36)
[2016-10-29] MEDS: ESTROGENS CONJUGATED 0.3 MG TAB PO SCH (09:41)
[2016-10-29] MEDS: GABAPENTIN 300 MG CAP PO SCH ×4 (09:41→20:24)
[2016-10-29] MEDS: buPROPion 150 MG TABER PO SCH ×2 (09:41→20:23)
[2016-10-29] MEDS: FLUoxetine 20 MG CAP PO SCH (09:42)
[2016-10-29] MEDS: CALCIUM ACETATE 667 MG TAB PO SCH ×2 (09:42→17:29)
[2016-10-29] MEDS: DOCUSATE SODIUM 100 MG GELCAP PO SCH (09:42)
[2016-10-29] MEDS: RIVAROXABAN 15 MG TAB PO SCH ×2 (09:44→17:29)
--- NOTE | 2016-10-29 11:00 | NUR ---
WOUND DRESSING DONE ACCORDING TO DR. RAINEY'S WOUND CARE ORDERS. PHOTOS TAKEN AND DOCUMENTED.
[2016-10-29] MEDS ORDERED: HYDROmorphone 1 MG/ML AMP IVP PRN ×2 (11:30→15:25)
[2016-10-29] MEDS: COMPOSITE DRESSING TP SCH (12:28)
--- NOTE | 2016-10-29 12:59 | NUR ---
SS NOTE: PER DILLON FROM [facility], THEY ARE ABLE TO ACCEPT PT BUT WILL NEED TO KNOW WHICH PHYSICIAN WILL SIGN PT'S ORDERS. SHE STATED THAT SHE SPOKE WITH PT'S PCP AND HE WILL NOT SIGN THEIR ORDERS. DR. ORTIZ MADE AWARE AND WILL VERIFY IF DR. LAW WOULD BE WILLING TO SIGN PT'S ORDERS.
[2016-10-29] MEDS ORDERED: oxyCODONE/APAP 5/325 MG 1 TAB TAB PO PRN (15:10)
[2016-10-29 16:00] VITALS: BP 106/52
--- NOTE | 2016-10-29 16:00 | NUR ---
PT'S IV GOT INFILTRATED, RESTARTED A NEW LINE ON LEFT HAND WITH GAUGE 24.
[2016-10-29] MEDS: HYDROmorphone 1 MG/ML AMP IVP PRN ×2 (17:30→20:33)
--- NOTE | 2016-10-29 18:57 | NUR ---
PT RESTING, NO SOB NOTED. NO C/O PAIN AT THIS TIME. IV HEPLOCKED. PT IS EATING AND DRINKING GOOD. WILL ENDORSE TO NEXT SHIFT NURSE FOR CONTINUITY OF CARE.
--- NOTE | 2016-10-29 19:25 | NUR ---
RECEIVED FROM AM RN IN BED SLEEPING. WAKES UP EASILY WHEN TOUCHED. DRESSING TO LEFT BUTTOCK INTACT AND DRY. NO BLEEDING NOTED. A/O X 4. ROM X 4. CLEAR SPEECH. NO SOB. DENIES PAIN AT THIS TIME. CALL LIGHT WITH IN REACH . DX. OF LEFT BUTTOCK INFECTION. ISOLATION PRECAUTIONS OBSERVED RT HX. MRSA NARES AND WOUND, ESBL WOUND AND BLOOD. ENCOURAGED TO CALL FOR ANY HELP SHE MAY NEED OR IF IN PAIN.
[2016-10-29] MEDS: ATORVASTATIN 20 MG TAB PO SCH (20:24)
[2016-10-29] MEDS: ZOLPIDEM 10 MG TAB PO SCH (20:24)
--- NOTE | 2016-10-29 21:14 | NUR ---
PT. MEDICATED WITH PAIN RELIEVER. SLEPT AFTER MEDICATION. WOKE HER UP A LITTLE BIT TO DO ER SPIROMETRY EXERCISE. BACK TO SLEEP IMMEDIATELY AFTER. CALL LIGHT WITH IN REACH.
--- NOTE | 2016-10-29 23:50 | NUR ---
PT. SLEEPING WELL. WAKES UP WHEN TOUCHED. NO COMPLAINTS DONE. NO RESTLESSNESS NOTED.
--- NOTE | 2016-10-30 02:13 | NUR ---
PT. SLEEPING. CALL LIGHT WITH IN REACH . A/O X 4. NO RESTLESSNESS NOTED.
--- NOTE | 2016-10-30 04:00 | NUR ---
SLEEPING WELL. ASSISTED TO RESTROOM X 1. NO COMPLAINTS DONE.
--- NOTE | 2016-10-30 07:17 | NUR ---
ENDORSED TO THE AM RN FOR CONTINUITY OF CARE. SLEEPING. WAKES UP WHEN TOUCHED. A/O X 4. NO COMPLAINTS DONE.
--- NOTE | 2016-10-30 07:18 | NUR ---
RECEIVED REPORT FROM INSPECTOR INTEGRATED CIRCUITS NURSE AT BEDSIDE. PT IS AWAKE ALERT AND ORIENTED. INTRODUCED OURSELVES AND UPDATED THE BOARD. PT HAS IV SITE IN L HAND 24 G SALINE-LOCKED. PATIENT STATED SHE HAS PAIN, WILL GIVE PAIN MEDS REQUESTED. CALL LIGHT WITHIN REACH. WILL CONTINUE TO MONITOR.
[2016-10-30] MEDS: CALCIUM ACETATE 667 MG TAB PO SCH (07:38)
[2016-10-30] MEDS: RIVAROXABAN 15 MG TAB PO SCH (07:40)
[2016-10-30 08:00] VITALS: BP 101/64
[2016-10-30] MEDS ORDERED: LEVO750T2 PO (09:04)
[2016-10-30] MEDS: GABAPENTIN 300 MG CAP PO SCH (09:06)
[2016-10-30] MEDS: buPROPion 150 MG TABER PO SCH (09:09)
[2016-10-30] MEDS: ESTROGENS CONJUGATED 0.3 MG TAB PO SCH (09:09)
[2016-10-30] MEDS: FLUoxetine 20 MG CAP PO SCH (09:10)
[2016-10-30] MEDS: DOCUSATE SODIUM 100 MG GELCAP PO SCH (09:10)
[2016-10-30] MEDS: SILVER SULFADIAZINE 1% 50 GM JAR TP SCH (09:12)
[2016-10-30] MEDS: THERAHONEY GEL 42.5 GM TP SCH (09:12)
[2016-10-30] MEDS: LEVOFLOXACIN 500 MG/D5W PREMIX 100 ML IV SCH (09:13)
--- NOTE | 2016-10-30 09:15 | NUR ---
ADMINISTERED MORNING MEDS. PT TOLERATED WELL. NO COMPLAINTS AT THIS TIME. CALL LIGHT WITHIN REACH. WILL CONTINUE TO MONITOR PT.
--- NOTE | 2016-10-30 10:33 | NUR ---
SS NOTE: I SPOKE WITH ALFRED FROM [facility] ([phone])AND INFORMED HER THAT DR. KEENA LAW WILL SIGN PT'S WOUND CARE ORDERS. SHE STATED THAT SHE WILL CALL ME BACK TO CONFIRM THAT A NURSE WILL COME TO SEE PT AT HOME TOMORROW.
[2016-10-30] MEDS ORDERED: DRY DRESSING TP PRN (10:55)
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
[2016-10-30] MEDS ORDERED: HYDROmorphone 1 MG/ML AMP IVP SCH (11:00)
--- NOTE | 2016-10-30 11:00 | NUR ---
WOUND CARE DONE. REMOVED OLD DRESSING. CLEANED WITH NS. PAT DRY. PACKED WITH XEROFORM DRESSING AND GAUZE AND APPLIED COMPOSITE DRESSING. CLEANED OTHER WOUND, PAT DRY, APPLIED SILVERDINE OINTMENT. COVERED WITH COMPOSITE DRESSING. PT TOLERATED WELL.
[2016-10-30] MEDS: COMPOSITE DRESSING TP SCH (11:12)
--- NOTE | 2016-10-30 11:14 | NUR ---
SS NOTE: I RECEIVED A CALL FROM STEWART LO FROM [facility] ([phone]). SHE STATED THAT A NURSE WILL COME TO SEE PT TOMORROW AND THAT [facility] HAS AUTHORIZED 1 RN VISIT. SHE ALSO STATED THAT SHE HAS LEFT A MESSAGE FOR PT'S [facility] CM TO OBTAIN AUTH FOR ADDITIONAL VISITS.
--- NOTE | 2016-10-30 11:30 | NUR ---
WENT OVER THE DISCHARGE WITH PT AND SPOUSE AT BEDSIDE. WENT OVER WOUND CARE INSTRUCTIONS. ANSWERED ALL QUESTIONS. REMOVED IV, CANNULA INTACT. NO BLEEDING NOTED. REMOVED ID BANDS. GAVE PT 5 DAYS OF DRESSINGS CHANGE. INFORMED PT, HH WILL BE COMING OUT TOMORROW FOR WOUND CARE. PT WILL CHANGED INTO HER PERSONAL CLOTHES AND WILL LET ME KNOW WHEN SHE IS READY TO GO. I WILL GET A WHEEL CHAIR READY.
--- NOTE | 2016-10-30 12:07 | NUR ---
PT WHEELED OUT IN A WHEELCHAIR W/ SPOUSE AT HER SIDE. PT HAS HER PERSONAL BELONGING WITH HER. PT IS IN STABLE CONDITION.
--- NOTE | 2016-10-30 12:22 | NUR ---
RECEIVED A CALL THIS AM FROM AGGIE MOORE TO [facility]. GAVE HER ORAL REPORT FOR TODAY AND YESTERDAY. LATER RECEIVED A CALL FROM VON FOR ROD THURMAN AT [facility] AND WAS GIVEN AUTHORIZATION FOR 5 DAYS. LEFT MESSAGE FOR [employer] COMPLAINT INVESTIGATIONS OFFICER. REF/AUTH NUMBER [id number].
== END 2016-10-30 12:07 | disposition home or self-care (01) | DRG 622 ==
LOC: MED 14:55 → MIC 18:48 → UNDOADMIN 18:48 → MTU 18:48
PROVIDERS: ADMIT Student in an Organized Health Care Education/Training Program; ATTEND Student in an Organized Health Care Education/Training Program
PROC: 0JB90ZZ Excision of Buttock Subcutaneous Tissue and Fascia, Open Approach (ICD-10-PCS; principal; 2016-10-27 11:30)
DX: E11.622 Type 2 diabetes mellitus with other skin ulcer (principal); E43 Unspecified severe protein-calorie malnutrition; L03.317 Cellulitis of buttock; N39.0 Urinary tract infection, site not specified; Z68.41 Body mass index [BMI] 40.0-44.9, adult; L98.419 Non-pressure chronic ulcer of buttock with unspecified severity; J45.909 Unspecified asthma, uncomplicated; A59.9 Trichomoniasis, unspecified; N18.2 Chronic kidney disease, stage 2 (mild); E78.5 Hyperlipidemia, unspecified; E66.01 Morbid (severe) obesity due to excess calories; F32.9 Major depressive disorder, single episode, unspecified; E11.22 Type 2 diabetes mellitus with diabetic chronic kidney disease; F41.9 Anxiety disorder, unspecified; M54.9 Dorsalgia, unspecified; G89.29 Other chronic pain; M79.2 Neuralgia and neuritis, unspecified; K21.9 Gastro-esophageal reflux disease without esophagitis; Z88.6 Allergy status to analgesic agent; Z88.1 Allergy status to other antibiotic agents; Z86.711 Personal history of pulmonary embolism; Z79.01 Long term (current) use of anticoagulants; Z83.3 Family history of diabetes mellitus; Z82.49 Family history of ischemic heart disease and other diseases of the circulatory system; Z80.3 Family history of malignant neoplasm of breast; Z83.79 Family history of other diseases of the digestive system; Z87.440 Personal history of urinary (tract) infections; Z90.710 Acquired absence of both cervix and uterus
CPT/HCPCS: 36415; 71010; 72192; 80048; 80053; 80305; 81001; 83036; 83605; 83690; 83735; 84100; 84439; 84443; 85025; 85610; 85730; 86886; 86900; 86901; 87040; 87070; 87075; 87077; 87081; 87086; 87186; 87205; 93005; 96374; 96375; 99285; J1100; J1170; J1644; J1956; J2001; J2060; J2175; J2250; J2270; J2405; J2543; J2704; J3010; J3490; J7030; J7060; J7120; Q0092

== ENCOUNTER 2018-10-27 18:52 | Emergency (ER) | payer BC, MEDICAID ==
[~2018-10-27] VITALS: Ht 147.3 cm; Wt 93.0 kg
[~2018-10-27 18:52] MED LIST changes: +BACL10TA4 PO; -BEN10 PO; +BUPR150T8 PO; +LEVO750T2 PO; -RIVA20TA PO; -[UNRECOGNIZED DRUG - CODE] PO
--- NOTE | 2018-10-27 19:02 | NUR ---
PT W/C TO BED2.
--- NOTE | 2018-10-27 19:03 | NUR ---
EKG AT BEDSIDE
[2018-10-27 19:05] VITALS: BP 102/60
[2018-10-27 19:10] VITALS: BP 102/56
--- NOTE | 2018-10-27 19:10 | NUR ---
PATIENT PRESENTS TO ER WITH C/O OF CHEST PAIN X 1 WEEK. PT STATES SHE HAS PAIN ON THE RIGHT KOJO EOF CHST. PT WAS HAVING SOME SOB. PT HAS HX OF PE IN 2016. PT USES 02 AT HOME, PT WAS PUT ON 2L IN ER. SAT. IS AT 96 PERCENT. PATIENT STATES PAIN OF 8/10 AT THIS TIME; VSS; PATIENT POSITIONED FOR COMFORT; HOB ELEVATED; BEDRAILS UP X2; BED DOWN. ER MD MADE AWARE OF PT STATUS. MEDICAL HX OF DM, TUBAL LIGATION, GALLBLADDER REMOVED. Addendum: 10/27/18 at 2002 by [email or web address] PATIENT PRESENTS TO ER WITH C/O OF CHEST PAIN X 1 WEEK. PT STATES SHE HAS PAIN ON THE RIGHT SIDE OF CHEST. PT WAS HAVING SOME SOB. PT HAS HX OF PE IN 2016. PT USES 02 AT HOME, PT WAS PUT ON 2L IN ER. SAT. IS AT 96 PERCENT. PATIENT STATES PAIN OF 8/10 AT THIS TIME; VSS; PATIENT POSITIONED FOR COMFORT; HOB ELEVATED; BEDRAILS UP X2; BED DOWN. ER MD MADE AWARE OF PT STATUS.
[2018-10-27] MEDS ORDERED: NACL 0.9% 500 ML IV ONE (19:52)
[2018-10-27] MEDS ORDERED: MORPHINE SULFATE 2 MG/ML SYR IVP ONE ×2 (19:55→22:05)
--- NOTE | 2018-10-27 20:10 | NUR ---
U/S WAS AT BEDSIDE, PT TOLERATED WELL.
[2018-10-27 20:17] LABS: BASOPHILS # (AUTO) 0.1 K/uL (0.00-0.22); BASOPHILS % (AUTO) 0.9 % (0.0-2.0); EOSINOPHILS # (AUTO) 0.2 K/uL (0-0.4); EOSINOPHILS % (AUTO) 1.5 % (0.0-4.0); HEMATOCRIT 38.4 % (36-48); HEMOGLOBIN 12.5 g/dL (12.0-16.0); LYMPHOCYTES # (AUTO) 3.3 K/uL (2.5-16.5); LYMPHOCYTES % (AUTO) 27.7 % (20.5-51.1); MEAN CORPUSCULAR HEMOGLOBIN 28 pg (27-31); MEAN CORPUSCULAR HGB CONC 33 g/dL (33-37); MEAN CORPUSCULAR VOLUME 85.5 fL (80-94); MONOCYTES # (AUTO) 0.8 K/uL (0.8-1.0); MONOCYTES % (AUTO) 7.1 % (1.7-9.3); NEUTROPHILS # (AUTO) 7.5 K/uL (1.8-7.7); NEUTROPHILS % (AUTO) 62.8 % (42.2-75.2); PLATELET COUNT (AUTO) 530 K/uL (140-450); RED BLOOD CELL COUNT(AUTO) 4.49 MIL/uL (4.20-5.40); RED CELL DISTRIBUTION WIDTH 15.9 % (11.6-13.7); WHITE BLOOD COUNT (AUTO) 11.9 K/uL (4.8-10.8)
--- NOTE | 2018-10-27 21:30 | NUR ---
PT SITTING UP IN BED, VITALS STABLE, COMFORT MEASURES OFFERED, PT TOLERATED WELL. AT BEDSIDE.
[2018-10-27 21:31] LABS: CREATININE 0.9 mg/dL (0.6-1.3); TOTAL BILIRUBIN 0.2 mg/dL (0.0-1.0)
[2018-10-27 21:36] LABS: ANION GAP 16.8 (8-16); CARBON DIOXIDE 24.9 mmol/L (21-32); POTASSIUM 3.7 mmol/L (3.5-5.1)
[2018-10-27 22:10] VITALS: BP 102/56
--- NOTE | 2018-10-27 22:13 | NUR ---
Patient discharged with v/s stable. Written and verbal after care instructions given and explained. Patient alert, oriented and verbalized understanding of instructions. Ambulatory with steady gait. All questions addressed prior to discharge. ID band removed. Patient advised to follow up with PMD. Rx of PROTONIX, TRAMADOL AND ZOFRAN WAS given. Patient educated on indication of medication including possible reaction and side effects. Opportunity to ask questions provided and answered.
== END 2018-10-27 22:13 | disposition home or self-care (01) ==
LOC: MED 18:52
DX: R10.11 Right upper quadrant pain (principal); R11.2 Nausea with vomiting, unspecified; R19.7 Diarrhea, unspecified; J45.909 Unspecified asthma, uncomplicated; Z98.890 Other specified postprocedural states; Z79.2 Long term (current) use of antibiotics; Z79.899 Other long term (current) drug therapy; Z79.891 Long term (current) use of opiate analgesic; Z88.6 Allergy status to analgesic agent; Z88.8 Allergy status to other drugs, medicaments and biological substances
CPT/HCPCS: 36415; 71045; 76705; 80053; 83690; 84484; 85025; 96361; 96374; 96376; 99284; J2270; J7030; Q0092

== ENCOUNTER 2018-11-23 17:19 | Inpatient (IN) | payer MEDICAID ==
[~2018-11-23] VITALS: Ht 147.3 cm; Wt 97.1 kg
[2018-11-23 17:22] VITALS: BP 126/53
--- NOTE | 2018-11-23 17:30 | NUR ---
PT AMB TO RESTROOM FOR URINE SAMPLE, STEADY GAIT
--- NOTE | 2018-11-23 17:41 | NUR ---
48 Y FEMALE BIB C/O N/V & UMBILICAL REGION & LLQ ABDOMINAL PAIN X 2 WEEKS. PAIN 02/11. LAST BM : YESTERDAY MORNING, STRAINED. C/O CONSTIPATION. BOWEL SOUNDS ACTIVE IN ALL 4 QUADRANTS. ABDOMEN SOFT AND ROUND. PT TACHY AT 107. PT [id number]. BED IS DOWN, LOCKED, BED RAIL X 1, ERMD TO SEE PT. MRD HX: HERNIA REPAIR X 3, HYSTERECTOMY Addendum: 11/23/18 at 1847 by [email or web address] ABDOMEN VERY TENDER TO TOUCH
--- NOTE | 2018-11-23 17:45 | NUR ---
PT HAS COPY OF CT SCAN FROM PREVIOUS VISIT WITH [facility] AT BEDSIDE. DR PRESSLEY NOTIFIED
--- NOTE | 2018-11-23 17:46 | NUR ---
CT RESULTS FROM [facility] SHOW LEFT LOWER QUADRANT ABDOMINAL HERNIA WITHOUT EVIDENCE OF OBSTRUCTION, SMALL FAT CONTAINING RIGHT PARAUMBILICAL HERNIA, AND HEPATOMEGALY.
--- NOTE | 2018-11-23 18:00 | NUR ---
DR PRESSLEY AT BEDSIDE FOR PT EVALUATION
[2018-11-23] MEDS ORDERED: NACL 0.9% 1,000 ML IV SCH (18:02)
[2018-11-23] MEDS ORDERED: NACL 0.9% 1,000 ML IV ONE (18:02)
[2018-11-23] MEDS ORDERED: PROMETHAZINE 25 MG/ML VIAL IM ONE (18:05)
[2018-11-23] MEDS ORDERED: diphenhydrAMINE 50 MG/ML VIAL IVP ONE (18:05)
[2018-11-23] MEDS ORDERED: MORPHINE SULFATE 4 MG/ML SYR IVP ONE ×2 (18:05→20:05)
[2018-11-23 18:41] LABS: BASOPHILS # (AUTO) 0.1 K/uL (0.00-0.22); EOSINOPHILS # (AUTO) 0.2 K/uL (0-0.4); EOSINOPHILS % (AUTO) 1.7 % (0.0-4.0); HEMATOCRIT 40.2 % (36-48); HEMOGLOBIN 13.1 g/dL (12.0-16.0); LYMPHOCYTES # (AUTO) 3.6 K/uL (2.5-16.5); LYMPHOCYTES % (AUTO) 25.7 % (20.5-51.1); MEAN CORPUSCULAR HEMOGLOBIN 28 pg (27-31); MEAN CORPUSCULAR HGB CONC 33 g/dL (33-37); MEAN CORPUSCULAR VOLUME 85.3 fL (80-94); MONOCYTES # (AUTO) 0.9 K/uL (0.8-1.0); MONOCYTES % (AUTO) 6.7 % (1.7-9.3); NEUTROPHILS # (AUTO) 9.1 K/uL (1.8-7.7); NEUTROPHILS % (AUTO) 64.9 % (42.2-75.2); PLATELET COUNT (AUTO) 428 K/uL (140-450); RED BLOOD CELL COUNT(AUTO) 4.71 MIL/uL (4.20-5.40); RED CELL DISTRIBUTION WIDTH 16.2 % (11.6-13.7)
--- NOTE | 2018-11-23 18:46 | NUR ---
CT WITH CONTRAST CANCELED.
[2018-11-23 18:47] LABS: APPEARANCE,URINE HAZY (CLEAR); BILIRUBIN,URINE NEGATIVE (NEGATIVE); BLOOD, URINE TRACE-L (NEGATIVE); COLOR,URINE YELLOW (YELLOW); LEUKOCYTE ESTERASE ,URINE 3+ (NEGATIVE); NITRITE, URINE NEGATIVE (NEGATIVE); UGLUCOSE NEGATIVE (NEGATIVE)
[2018-11-23 18:51] LABS: ACETONE, SERUM NEGATIVE (NEGATIVE); PROTHROMBIN TIME 9.1 secs (10.8-13.4)
[2018-11-23 18:55] LABS: BARBITURATE, URINE NEG. ng/ml (NEG <=200); BENZODIAZEPINE, URINE NEG. ng/mL (NEG <=200); CANNABINOID, URINE NEG. ng/mL (NEG <=50); COCAINE, URINE NEG. ng/mL (NEG <=300); OPIATE, URINE NEG. ng/mL (NEG <=2000); PHENCYCLIDINE SCREEN,URINE NEG. ng/mL (NEG <=25)
[2018-11-23 18:58] LABS: AMYLASE 44 U/L (25-115); ANION GAP 14.9 (8-16); ASPARTATE AMINOTRANSFERASE 11 U/L (15-37); CHLORIDE 103 mmol/L (98-107); GFR ARICAN-AMERICAN 77 mL/min (>90); GLUCOSE 113 mg/dL (74-106); LIPASE 139 U/L (73-393); MAGNESIUM 2.2 mg/dL (1.8-2.4); POTASSIUM 3.9 mmol/L (3.5-5.1); SODIUM SERUM 140 mmol/L (136-145); TOTAL BILIRUBIN 0.2 mg/dL (0.0-1.0); UREA NITROGEN, BLOOD 11 mg/dL (7-18)
--- NOTE | 2018-11-23 19:06 | NUR ---
PT TAKEN TO CT WITH FLUIDS RUNNING VIA GURNEY
--- NOTE | 2018-11-23 19:07 | NUR ---
REPORT GIVEN TO BERTHA OLIVIER, TRANSFER OF CARE AT THIS TIME
--- NOTE | 2018-11-23 19:20 | NUR ---
PT BACK FROM CT
--- NOTE | 2018-11-23 19:25 | NUR ---
PT LAYING IN BED, AT BEDSIDE. PT REPORTS 8/10 ABD PAIN AROUND HERNIA DESPITE MORPHINE 4MG IVP. DR MAGALLANES MADE AWARE. ALL NEEDS MET AT THIS TIME.
[2018-11-23 19:28] LABS: WBC,URINE TOO MANY TO COUNT /HPF (0-5)
[2018-11-23 19:31] LABS: TRICHOMONAS,URINE Moderate /HPF (None Seen)
[2018-11-23] MEDS ORDERED: ONDANSETRON 4 MG/2 ML VIAL IVP ONE (20:05)
[2018-11-23] MEDS ORDERED: ACET-5636 PO (20:15)
[2018-11-23] MEDS ORDERED: CARI350T PO (20:15)
[2018-11-23] MEDS ORDERED: SYN.05 PO ×2 (20:15→22:22)
[2018-11-23] MEDS ORDERED: ELA25 PO (20:15)
[2018-11-23] MEDS ORDERED: QUET25TA PO (20:15)
[2018-11-23] MEDS ORDERED: PIPERACILLIN/TAZOBACTAM 3.375 GM in DEXTROSE 5% 50 ML IV ONE (20:50)
[2018-11-23] MEDS ORDERED: metroNIDAZOLE 500 MG/NS PREMIX 100 ML IV ONE (20:55)
--- NOTE | 2018-11-23 20:59 | NUR ---
PT LAYING IN BED, AT BEDSIDE. VS NOTED, RR EVEN AND UNLABORED. PT REPORTS 6/10 ABD PAIN AROUND HERNIA WITH IMPROVEMENT. ALL NEEDS MET AT THIS TIME.
[2018-11-23] MEDS ORDERED: DOCUSATE SODIUM 100 MG GELCAP PO PRN (21:05)
[2018-11-23] MEDS ORDERED: LORazepam 2 MG/ML VIAL IM/IVP PRN (21:05)
[2018-11-23] MEDS ORDERED: ZOLPIDEM 5 MG TAB PO PRN (21:05)
[2018-11-23] MEDS ORDERED: ONDANSETRON 4 MG/2 ML VIAL IM/IVP PRN (21:05)
[2018-11-23] MEDS ORDERED: ACETAMINOPHEN 325 MG TAB PO PRN (21:05)
[2018-11-23] MEDS: DEXT 5% /NACL 0.9% 1,000 ML IV SCH ×2 (21:05→23:50)
[2018-11-23] MEDS ORDERED: PIPERACILLIN/TAZOBACTAM 3.375 GM VIAL IV ONE (21:17)
[2018-11-23] MEDS ORDERED: INSULIN LISPRO SLIDING SCALE 100 UNITS/ML VIAL SUBQ PRN (21:25)
[2018-11-23] MEDS ORDERED: DEXTROSE 50% 50 ML SYR IVP PRN (21:25)
[2018-11-23] MEDS ORDERED: ALBUTEROL SULFATE/IPRATROPIU 3 ML SOL IH PRN (21:50)
[2018-11-23] MEDS: MORPHINE SULFATE 2 MG/ML SYR IVP PRN (21:53)
[2018-11-23 21:56] LABS: PHOSPHORUS 4.2 mg/dL (2.5-4.9); THYROID STIMULATING HORMONE 2.87 uIU/mL (0.34-3.74)
[2018-11-23] MEDS ORDERED: metroNIDAZOLE 500 MG/NS PREMIX 100 ML IV SCH (22:00)
--- NOTE | 2018-11-23 22:02 | NUR ---
Patient will be admitted to care of DR. BENNETT. Admited to [facility]. Will go to room 115. Belongings list completed. Report to CHARLINE CHAIREZ.
--- NOTE | 2018-11-23 22:05 | NUR ---
RECEIVED FROM ER PER WHEELCHAIR AWAKE AND ALERT. NO SOB. CALL LIGHT WITH IN REACH. CARE PLANS FOR THE NIGHT DISCUSSED WITH HER. AMBULATING WELL BY HERSELF. STEADY IN AMBULATING. A/O X 4. ROM X 4. CLEAR SPEECH. ABLE TO VERBALIZE NEEDS WELL. DX. OF VENTRAL HERNIA AND UTI. PT. SKIN INTACT. OLD SCAR FROM ABDOMINAL HERNIA REPAIR AND LEFT INGUINAL HERNIA REPAIR. MEDICATED IN ER WITH MORPHINE IVP . NO S/S OF ADVERSE REACTIONS TO IV ABT ADMINISTERED IN ER WHICH IS FLAGYL AND ZOSYN. RAPID RESPONSE EXPLAINED TO PT. ORIENTED TO ROOM, CALL LIGHT AND CARE GIVERS.
[2018-11-23] MEDS ORDERED: [UNRECOGNIZED DRUG - CODE] PO (22:22)
[2018-11-23] MEDS ORDERED: AMIT25TA28 PO (22:22)
[2018-11-23] MEDS ORDERED: NICOTINE TRANSD SYS 14 MG/24 HR PATCH TD SCH (23:00)
--- NOTE | 2018-11-23 23:14 | NUR ---
[facility] NARES SWAB SENT TO LABORATORY PER PROTOCOL. INSTRUCTED NPO RT WITH PROCEDURES FOR SBO IN A LITTLE WHILE. "OK"
[2018-11-23 23:56] VITALS: BP 132/68
--- NOTE | 2018-11-24 00:28 | NUR ---
SLEEPING WELL. WAKES UP EASILY WHEN CALLED BY NAME. NO PAIN COMPLAINTS AT THIS TIME.
--- NOTE | 2018-11-24 00:30 | NUR ---
RESIDENT MD CARRANZA MADE AWARE OF ZOSYN INFUSED IN ER . "YOU CAN GIVE IN A.M. AROUND 6 FOR THE NEXT DOSE."
[2018-11-24] MEDS: PIPERACILLIN/TAZOBACTAM 2.25 GM in DEXTROSE 5% 50 ML IV SCH ×2 (01:00→05:38)
--- NOTE | 2018-11-24 02:25 | NUR ---
XR SMALL BOWEL THROUGH ORDERED ON PT. DONE BY TECH. NO COMPLAINTS DONE. IVF SITE INTACT AND NO INFILTRATION.
--- NOTE | 2018-11-24 03:00 | NUR ---
SLEEPING AT THIS TIME. IVF SITE INTACT AND NO INFILTRATION. GOOD BLOOD RETURN.
[2018-11-24 03:59] VITALS: BP 113/70
[2018-11-24] MEDS: HYDROcodone/APAP 5/325 MG 1 TAB TAB PO PRN ×2 (04:07→18:16)
[2018-11-24] MEDS ORDERED: PIPERACILLIN/TAZOBACTAM 2.25 GM VIAL IV ONE (05:27)
--- NOTE | 2018-11-24 05:34 | NUR ---
PT. AM PERSONAL HYGIENE RENDERED BY PIPE FINISHING SUPERVISOR AND ME. NO COMPLAINTS DONE. COMFORTABLE POST NORCO MEDICATION. VERBALIZES WELL. ABLE TO MAKE NEEDS KNOWN.
[2018-11-24] MEDS: BLOOD GLUCOSE MONITORING 1 DEV DEV FS SCH ×4 (05:41→20:46)
--- NOTE | 2018-11-24 05:52 | NUR ---
BLOOD SUGAR CHECK PER FINGERSTICK 132 MG/DL. NO INSULIN COVERAGE ADMINISTERED. PT. NO S/S OF HYPER/HYPOGLYCEMIA EPISODES. NO COMPLAINTS DONE. WENT BACK TO SLEEP AFTER.
--- NOTE | 2018-11-24 05:53 | NUR ---
PT. A/O X 4. ROM X 4. AMBULATES WELL BY HERSELF. INDEPENDENT. NPO EXCEPT MEDICATIONS ORDERED. PT. AWARE OF IT. WILL ENDORSE TO THE AM RN FOR CONTINUITY OF CARE.
[2018-11-24] MEDS ORDERED: ALBUTEROL SULFATE/IPRATROPIU 3 ML SOL IH SCH (06:00)
[2018-11-24] MEDS ORDERED: ACETAMINOPHEN 325 MG TAB PO SCH ×2 (06:07→09:00)
[2018-11-24] MEDS: LEVOTHYROXINE 0.025 MG TAB PO SCH (06:31)
[2018-11-24 06:48] LABS: ANION GAP 12.1 (8-16); CARBON DIOXIDE 28.3 mmol/L (21-32); CREATININE 0.9 mg/dL (0.6-1.3); POTASSIUM 4.4 mmol/L (3.5-5.1)
[2018-11-24 06:49] LABS: BASOPHILS # (AUTO) 0.1 K/uL (0.00-0.22); BASOPHILS % (AUTO) 0.6 % (0.0-2.0); EOSINOPHILS # (AUTO) 0.3 K/uL (0-0.4); EOSINOPHILS % (AUTO) 3.3 % (0.0-4.0); HEMATOCRIT 36.3 % (36-48); HEMOGLOBIN 11.7 g/dL (12.0-16.0); LYMPHOCYTES # (AUTO) 2.4 K/uL (2.5-16.5); LYMPHOCYTES % (AUTO) 29.1 % (20.5-51.1); MEAN CORPUSCULAR HEMOGLOBIN 28 pg (27-31); MEAN CORPUSCULAR HGB CONC 32 g/dL (33-37); MEAN CORPUSCULAR VOLUME 85.1 fL (80-94); MONOCYTES # (AUTO) 0.7 K/uL (0.8-1.0); MONOCYTES % (AUTO) 8.5 % (1.7-9.3); NEUTROPHILS # (AUTO) 4.9 K/uL (1.8-7.7); NEUTROPHILS % (AUTO) 58.5 % (42.2-75.2); PLATELET COUNT (AUTO) 475 K/uL (140-450); RED BLOOD CELL COUNT(AUTO) 4.27 MIL/uL (4.20-5.40); RED CELL DISTRIBUTION WIDTH 16.1 % (11.6-13.7); WHITE BLOOD COUNT (AUTO) 8.4 K/uL (4.8-10.8)
[2018-11-24 06:59] LABS: MAGNESIUM 2.1 mg/dL (1.8-2.4); PHOSPHORUS 5.1 mg/dL (2.5-4.9)
--- NOTE | 2018-11-24 07:20 | NUR ---
RECEIVED BEDSIDE REPORT FROM NIGHT NURSE. DISCUSSED POC IN PT PRESENCE. PT HAS NO OBVIOUS SIGNS OF DISTRESS WITH A LEFT AC IV SITE ASYMPTOMATIC AND PATENT INFUSING D5 NS AT 70ML/HR. PT HAS NO COMPLAINTS AND BREATHING IS SYMMETRICAL WITH NO ISSUE.
[2018-11-24 08:00] VITALS: BP 102/66
--- NOTE | 2018-11-24 08:12 | NUR ---
PATIENT HAS BEEN SCREENED AND CATEGORIZED HIGH NUTRITION RISK. PATIENT WILL BE SEEN WITHIN 1-2 DAYS OF ADMISSION. 11/24/18-11/25/[address]
--- NOTE | 2018-11-24 08:23 | NUR ---
RECEIVED CALL FROM RACHEAL IN PHARMACY ASKING ME TO ASK PATIENT ABOUT amitriptyline DOSAGE. SPOKE WITH PT AND CLARIFIED THAT SHE DOES IN FACT TAKE 1225MG AT BEDTIME. SPOKE WITH DR. BRITO WHO INFORMED ME SHE WOULD INFORM DR. RODGERS WELL.
[2018-11-24] MEDS: oxyCODONE 10 MG TABER PO SCH ×3 (08:24→23:47)
[2018-11-24] MEDS: LACTOBACILLUS RHAMNOSUS GG 1 EACH CAP PO SCH (08:33)
[2018-11-24] MEDS: QUEtiapine FUMARATE 25 MG TAB PO SCH ×2 (08:33→20:25)
[2018-11-24] MEDS: hydrOXYzine HCL 25 MG TAB PO SCH ×3 (08:34→16:37)
[2018-11-24] MEDS: DOCUSATE SODIUM 100 MG GELCAP PO SCH ×2 (08:34→20:23)
[2018-11-24] MEDS: PARoxetine 20 MG TAB PO SCH (08:34)
[2018-11-24] MEDS: CARISOPRODOL 350 MG TAB PO SCH ×2 (08:35→20:38)
[2018-11-24] MEDS: NICOTINE TRANSD SYS 14 MG/24 HR PATCH TD SCH (08:35)
[2018-11-24] MEDS: ASPIRIN 81 MG TAB.CHEW PO SCH (08:35)
[2018-11-24] MEDS: ATORVASTATIN 20 MG TAB PO SCH (08:35)
[2018-11-24] MEDS ORDERED: PAROXETINE HCL 30 MG PO SCH (09:00)
[2018-11-24] MEDS ORDERED: HYDROXYZINE HYDROCHLORIDE PO SCH (09:00)
[2018-11-24] MEDS ORDERED: NON-FORMULARY ITEM (Oxycodone HCl/Acetaminophen (Percocet 10-325 mg Tablet) 1 TAB) PO SCH (09:00)
[2018-11-24] MEDS ORDERED: oxyCODONE 10 MG TABER PO SCH (09:00)
[2018-11-24] MEDS ORDERED: MUPIROCIN CA NASAL 2% 1GM TUBE NS SCH (09:00)
[2018-11-24] MEDS ORDERED: CHLORHEXADINE GLUC 2% CLOTH TP SCH (09:00)
--- NOTE | 2018-11-24 09:10 | NUR ---
ADMINISTERED MEDICATIONS. NO OBVIOUS SIGNS OF DISTRESS.
--- NOTE | 2018-11-24 10:51 | NUR ---
11/24/18 RD INITIAL ASSESSMENT COMPLETED PLEASE REFER TO NUTRITION ASSESSMENT UNDER CARE ACTIVITY FOR ESTIMATED NUTRITIONAL NEEDS. 1. CONTINUE NPO MEDICALLY APPROPRIATE 2. RECOMMEND CLEAR LIQUID DIET WHEN PT IS MEDICALLY STABLE TO RECEIVE NUTRITION 3. RECOMMEND CCHO 60 DIET WHEN PT CAN RECEIVE SOLID FOOD 4. DIABETES EDUCATION WAS PROVIDED 5. RD TO FOLLOW-UP 3-5 DAYS, MODERATE RISK SHLOMO WALKER RD
--- NOTE | 2018-11-24 11:00 | NUR ---
PT IS SITTING UP IN BED WITH NO COMPLAINTS AT THIS TIME AND NO OBVIOUS SIGNS OF DISTRESS.
--- NOTE | 2018-11-24 11:20 | NUR ---
PATIENT GAVE ME INFORMATION ON DR RUTHERFORD OFFICE, CALLED THE OFFICE TO GET FAX NUMBER FOR MEDICAL RECORDS, PER DR CULP. THEY GAVE ME THE FAX NUMBER [phone]. FAXED THE INFORMATION TO DR RUTHERFORD OFFICE. PATIENT SIGNED AND SAID OK TO OBTAIN MEDICAL RECORDS.
--- NOTE | 2018-11-24 11:25 | NUR ---
FAX WAS SENT AND VERIFIED, PLACED IN THE CHART
[2018-11-24] MEDS: PIPER/TAZO 3.375GM/D5W PREMIX 50 ML IV SCH ×3 (12:09→23:49)
--- NOTE | 2018-11-24 12:10 | NUR ---
PT SLEEPING IN BED WITH BREATHING SYMMETRICAL AND NO OBVIOUS SIGNS OF DISTRESS.
[2018-11-24] MEDS: MORPHINE SULFATE 2 MG/ML SYR IVP PRN ×2 (12:23→20:28)
--- NOTE | 2018-11-24 13:10 | NUR ---
PT SLEEPING IN BED BREATHING UNLABORED AND SYMMETRICAL NO OBVIOUS SIGNS OF DISTRESS
[2018-11-24] MEDS: ALBUTEROL SULFATE/IPRATROPIU 3 ML SOL IH SCH ×2 (14:47→19:36)
--- NOTE | 2018-11-24 14:55 | NUR ---
PT RESTING IN BED BREATHING SYMMETRICAL AND UNLABORED.
[2018-11-24 16:00] VITALS: BP 102/60
[2018-11-24] MEDS: ACETAMINOPHEN 325 MG TAB PO SCH ×2 (16:37→23:47)
--- NOTE | 2018-11-24 16:43 | NUR ---
ADMINISTERED MEDICATIONS. PT HAS NO REQUESTS AT THIS TIME BESIDES ASKING FOR A JELLO WHICH I PROVIDED. NO OBVIOUS SIGNS OF DISTRESS AT THIS TIME WITH BREATHING SYMMETRICAL AND UNLABORED.
--- NOTE | 2018-11-24 18:18 | NUR ---
ADMINISTERED PRN PAIN MEDICATION. PT RESTING IN BED WITH NO OTHER REQUESTS AT THIS TIME. BREATHING SYMMETRICAL AND UNLABORED.
--- NOTE | 2018-11-24 18:45 | NUR ---
PT STATES SHE THREW UP CLEAR FLUIDS RECENTLY BUT STATES SHE FEELS FINE AND DOES NOT WANT ANY INTERVENTION AT THIS TIME. SHE STATES SHE BELIEVES THE NORCO MADE HER SICK.
--- NOTE | 2018-11-24 19:03 | NUR ---
REPORT GIVEN AT BEDSIDE BY LEONIE OLIVIER AND DARLEEN RN FOR CONTINUITY OF CARE,PT INSTABLE CONDITION.
--- NOTE | 2018-11-24 19:03 | NUR ---
GAVE BEDSIDE REPORT TO NIGHT NURSE. PT IN STABLE CONDITION AT THIS TIME. ENDORSED TO NURSE PENDING PAIN REASSESSMENT DUE.
--- NOTE | 2018-11-24 19:50 | NUR ---
RECEIVED PATIENT ON 2L NASAL CANNULA, PULSE OX SAT 96%. SCHEDULED BREATHING TREATMENT ADMINISTERED. TOLERATED TX WELL, NO ADVERSE SIDE EFFECTS. PLACED PATIENT BACK ON NASAL CANNULA. NO RESPIRATORY DISTRESS NOTED AT THIS TIME. WILL CONTINUE TO MONITOR.
--- NOTE | 2018-11-24 20:00 | NUR ---
PT IN LOW BED WITH SIDE RAILS UP X2 AND CALL BED IN REACH. PT IV SITE LAC 22G INTACT AND FLUSHED PATENT. FLUID IS RUNNING D5N/S AT 70MLS/HR. V/S FOLLOWS T 97.0 P 86 R 18 B/P 98/58 02 96% WITH 3 LITERS VIA N/C. PT C/O SEVERE PAIN IN ABDOMEN. WILL MEDICATE PT REQUESTED.
--- NOTE | 2018-11-24 20:30 | NUR ---
PT IN BED IV SITE FLUSHED PATENT. FINGERSTICK IS 143, NO COVERAGE NEEDED. PT GIVEN DUE MEDS OF COLACE, ELAVIL,SEROQUEL, SOMA AND HEPARIN. PT ALSO GIVEN IVP PRN MORPHINE FOR SEVERE PAIN 7/10 IN ABDOMEN. PT AMBULATED STEADILY TO TOILET AND BACK. ALL REQUESTED NEEDS ATTENDED AND CALL MONTALVO IN REACH.
[2018-11-24] MEDS ORDERED: AMITRIPTYLINE 50 MG TAB PO SCH (21:00)
[2018-11-24] MEDS ORDERED: AMITRIPTYLINE 25 MG TAB PO SCH ×2 (21:00)
[2018-11-24] MEDS ORDERED: AMITRIPTYLINE HCL PO SCH (21:00)
--- NOTE | 2018-11-24 22:00 | NUR ---
PT ASLEEP IN LOW BED WITH SIDE RAILS UP X2. CALL MONTALVO IN REACH, NO S/S OF PAIN OR DISTRESS NOTED.
[2018-11-25] VITALS: BP 100/59
--- NOTE | 2018-11-25 | NUR ---
PT IN BED SLEEPING BUT AROUSABLE TO LIGHT TOUCH. PT AMBULATED STEADILY TO TOILET AND BACK. LINE RE PRIMED DUE TO IV PUMP BEEPING. PT GIVEN DUE OXYCONTIN 10MG WITH 325MG TYLENOL. PT ALSO GIVEN IV ABT OF ZOSYN FOR UTI. V/S FOLLOWS T 97.4 P 91 R 18 B/P 100/59 02 94% WITH 2 LITERS VIA N/C.
[2018-11-25] MEDS: DEXT 5% /NACL 0.9% 1,000 ML IV SCH (01:41)
--- NOTE | 2018-11-25 02:30 | NUR ---
PT IN BED SLEEPING NO S/S OF PAIN OR DISTRESS NOTED. IV SITE INTACT AND FLUSHED PATENET. PT IN LOW BED WITH SIDE RAILS UP X2 AND CALL MONTALVO IN REACH.
--- NOTE | 2018-11-25 04:00 | NUR ---
PT IN BED SLEEPING, NO S/S OF PAIN OR DISTRESS NOTED.
[2018-11-25] MEDS: PIPER/TAZO 3.375GM/D5W PREMIX 50 ML IV SCH ×2 (05:42→12:32)
[2018-11-25] MEDS: LEVOTHYROXINE 0.025 MG TAB PO SCH (05:50)
[2018-11-25] MEDS: BLOOD GLUCOSE MONITORING 1 DEV DEV FS SCH ×2 (05:50→12:05)
[2018-11-25] MEDS: MORPHINE SULFATE 2 MG/ML SYR IVP PRN (05:52)
[2018-11-25 06:27] LABS: MAGNESIUM 2.2 mg/dL (1.8-2.4); PHOSPHORUS 5.2 mg/dL (2.5-4.9)
[2018-11-25 06:30] LABS: ANION GAP 8.4 (8-16); CARBON DIOXIDE 31.8 mmol/L (21-32); CREATININE 0.8 mg/dL (0.6-1.3); POTASSIUM 4.2 mmol/L (3.5-5.1)
--- NOTE | 2018-11-25 06:30 | NUR ---
PT IN ROOM BLOOD DRAW AT BEDSIDE. PT FINGERSTICK IS 110 NO COVERAGE NEEDED. PT DID C/O OF SEVERE PAIN IN LOWER ABDOMEN. PT GIVEN IVP MORPHINE FOR 7/10 PAIN. GANGA MONITOR FOR PAIN RELIEF.
[2018-11-25] MEDS ORDERED: KETOROLAC 15 MG/ML VIAL IVP PRN (06:35)
[2018-11-25 06:50] LABS: BASOPHILS # (AUTO) 0.1 K/uL (0.00-0.22); BASOPHILS % (AUTO) 0.7 % (0.0-2.0); EOSINOPHILS # (AUTO) 0.3 K/uL (0-0.4); EOSINOPHILS % (AUTO) 3.4 % (0.0-4.0); HEMATOCRIT 36.1 % (36-48); HEMOGLOBIN 11.7 g/dL (12.0-16.0); LYMPHOCYTES # (AUTO) 2.2 K/uL (2.5-16.5); LYMPHOCYTES % (AUTO) 26.4 % (20.5-51.1); MEAN CORPUSCULAR HEMOGLOBIN 27 pg (27-31); MEAN CORPUSCULAR HGB CONC 32 g/dL (33-37); MEAN CORPUSCULAR VOLUME 84.1 fL (80-94); MONOCYTES # (AUTO) 0.6 K/uL (0.8-1.0); MONOCYTES % (AUTO) 7.2 % (1.7-9.3); NEUTROPHILS # (AUTO) 5.1 K/uL (1.8-7.7); NEUTROPHILS % (AUTO) 62.3 % (42.2-75.2); PLATELET COUNT (AUTO) 487 K/uL (140-450); RED BLOOD CELL COUNT(AUTO) 4.29 MIL/uL (4.20-5.40); RED CELL DISTRIBUTION WIDTH 16.1 % (11.6-13.7); WHITE BLOOD COUNT (AUTO) 8.1 K/uL (4.8-10.8)
--- NOTE | 2018-11-25 07:25 | NUR ---
RECEIVED BEDSIDE REPORT FROM CHARLINE GUTIERREZ. PT STABLE, AWAKE, ALERT AND ORIENTED X4. NO SIGNS OF DISTRESS NOTED. DENIES PAIN OR SOB. ON 3L O2 VIA NC. NO REDNESS, SWELLING, OR INFLAMMATION NOTED ON IV SITE. CALL MONTALVO WITHIN REACH. BED IN LOWEST POSITION. SAFETY MEASURES IN PLACE. PLAN OF CARE REVIEWED.
--- NOTE | 2018-11-25 07:26 | NUR ---
REPORT GIVEN TO ANNIE WALKER AT BEDSIDE FOR CONTINUITY OF CARE, PT IN STABLE CONDITION.
[2018-11-25] MEDS ORDERED: NACL 0.9% 1,000 ML IV SCH (07:50)
[2018-11-25] MEDS: ALBUTEROL SULFATE/IPRATROPIU 3 ML SOL IH SCH ×2 (07:51→13:37)
[2018-11-25 08:00] VITALS: BP 111/56
[2018-11-25] MEDS ORDERED: CALCIUM ACETATE 667 MG TAB PO SCH (08:00)
[2018-11-25] MEDS: ACETAMINOPHEN 325 MG TAB PO SCH (08:57)
[2018-11-25] MEDS: oxyCODONE 10 MG TABER PO SCH (08:57)
[2018-11-25] MEDS: LACTOBACILLUS RHAMNOSUS GG 1 EACH CAP PO SCH (08:58)
[2018-11-25] MEDS: QUEtiapine FUMARATE 25 MG TAB PO SCH (08:58)
[2018-11-25] MEDS: hydrOXYzine HCL 25 MG TAB PO SCH ×2 (08:58→12:32)
[2018-11-25] MEDS: PARoxetine 20 MG TAB PO SCH (08:59)
[2018-11-25] MEDS: CARISOPRODOL 350 MG TAB PO SCH (08:59)
[2018-11-25] MEDS: DOCUSATE SODIUM 100 MG GELCAP PO SCH (09:00)
[2018-11-25] MEDS: ATORVASTATIN 20 MG TAB PO SCH (09:00)
[2018-11-25] MEDS: ASPIRIN 81 MG TAB.CHEW PO SCH (09:00)
[2018-11-25] MEDS: NICOTINE TRANSD SYS 14 MG/24 HR PATCH TD SCH (09:00)
--- NOTE | 2018-11-25 09:16 | NUR ---
ADMINISTERED ALL SCHEDULED MEDICATIONS, PT TOLERATED WELL. NO OTHER NEEDS AT THIS TIME.
--- NOTE | 2018-11-25 10:35 | NUR ---
PT STABLE, SLEEPING, BUT EASILY AROUSABLE. NO SIGNS OF DISTRESS NOTED. CHEST RISE AND FALL VISIBLY NOTED.
--- NOTE | 2018-11-25 12:30 | NUR ---
PT COMPLAINING OF BACK PAIN AND ABDOMINAL PAIN. OFFERED PT PRN TORADOL, PT REFUSED. PT IS REQUESTING FOR MORPHINE INSTEAD. MADE DR RODGERS AWARE. PER DR RODGERS, CAN ONLY GIVE TORADOL. WILL LET PT KNOW.
--- NOTE | 2018-11-25 12:38 | NUR ---
ADMINISTERED SCHEDULED MEDICATIONS AND PRN TORADOL FOR 8/10 ABDOMINAL AND BACK PAIN. PT TOLERATED WELL. WILL CONTINUE TO MONITOR.
--- NOTE | 2018-11-25 13:39 | NUR ---
MADE DR RODGERS AWARE THAT PT IS COMPLAINING OF ABDOMINAL AND BACK PAIN AGAIN. UNABLE TO GIVE ANOTHER DOSE OF TORADOL DUE TO IT WAS LAST GIVEN 1 HR AGO. MD WILL PUT IN NEW ORDERS.
[2018-11-25] MEDS ORDERED: oxyCODONE 10 MG TABER PO SCH ×2 (14:00→17:00)
--- NOTE | 2018-11-25 14:25 | NUR ---
DR RODGERS AND PT'S AT BEDSIDE.
--- NOTE | 2018-11-25 14:36 | NUR ---
ADMINISTERED SCHEDULED OXYCODONE PER MD ORDER FOR 8/10 BACK PAIN AND ABDOMINAL PAIN. PT TOLERATED WELL.
--- NOTE | 2018-11-25 15:10 | NUR ---
PT DECIDED TO LEAVE AMA. PER PT, AT BEDSIDE IS DRUNK AND DROVE TO THE HOSPITAL UNDER THE INFLUENCE, "MY JUST LOST HIS JOB AND NOW HE'S DRUNK. I NEED TO DRIVE HIM HOME". DR RODGERS AT BEDSIDE TO EXPLAIN TO PT THE CONSEQUENCES OF LEAVING AMA. PT VERBALIZED UNDERSTANDING. MADE PT KNOWN REGARDING APPOINTMENT WITH DR POLO ON THURSDAY NOVEMBER 29, 2018 AT 2:30 PM, PT VERBALIZED UNDERSTANDING. INSTRUCTED PT TO GO TO THE NEAREST ER IF EXPERIENCING WORSENING OF SYMPTOMS. PT STABLE, A&O X4, COMMUNICATES APPROPRIATELY. PT SIGNED AMA FORM. PT TOOK ALL BELONGINGS HOME. D/C IV, CATHETER TIP INTACT, BLEEDING CONTROLLED. PT WILL DRIVE HERSELF AND HOME.
[2018-11-25 16:42] LABS: T4 (THYROXINE) 4.9 ug/dL (4.5 - 12.0)
[2018-11-25] MEDS ORDERED: ACETAMINOPHEN 325 MG TAB PO SCH (17:00)
== END 2018-11-25 15:10 | disposition left against medical advice (07) | DRG 720 ==
LOC: MED 17:19 → MTU 21:22
PROVIDERS: ADMIT General Practice; ATTEND General Practice
DX: A41.9 Sepsis, unspecified organism (principal); E43 Unspecified severe protein-calorie malnutrition; J18.9 Pneumonia, unspecified organism; E66.01 Morbid (severe) obesity due to excess calories; E83.39 Other disorders of phosphorus metabolism; K43.6 Other and unspecified ventral hernia with obstruction, without gangrene; R16.0 Hepatomegaly, not elsewhere classified; A59.9 Trichomoniasis, unspecified; D64.9 Anemia, unspecified; E11.9 Type 2 diabetes mellitus without complications; E03.9 Hypothyroidism, unspecified; N39.0 Urinary tract infection, site not specified; E83.51 Hypocalcemia; M54.5 Low back pain; F32.9 Major depressive disorder, single episode, unspecified; F17.210 Nicotine dependence, cigarettes, uncomplicated; J44.9 Chronic obstructive pulmonary disease, unspecified; J98.11 Atelectasis; E78.5 Hyperlipidemia, unspecified; N83.209 Unspecified ovarian cyst, unspecified side; E78.1 Pure hyperglyceridemia; F41.1 Generalized anxiety disorder; G89.4 Chronic pain syndrome; Z53.21 Procedure and treatment not carried out due to patient leaving prior to being seen by health care provider; B96.20 Unspecified Escherichia coli [E. coli] as the cause of diseases classified elsewhere; Z68.41 Body mass index [BMI] 40.0-44.9, adult; Z71.3 Dietary counseling and surveillance; Z79.899 Other long term (current) drug therapy; Z86.711 Personal history of pulmonary embolism; Z90.710 Acquired absence of both cervix and uterus; Z83.3 Family history of diabetes mellitus; Z80.3 Family history of malignant neoplasm of breast; Z82.49 Family history of ischemic heart disease and other diseases of the circulatory system; K45.8 Other specified abdominal hernia without obstruction or gangrene
CPT/HCPCS: 36415; 71045; 74250; 76705; 80048; 80053; 80305; 81001; 82009; 82150; 82948; 83036; 83605; 83690; 83735; 83880; 84100; 84134; 84436; 84443; 84484; 84703; 85025; 85610; 85730; 87040; 87081; 87086; 87186; 93005; 94640; 96361; 96365; 96372; 96375; 96376; 99285; J1200; J1644; J1815; J1885; J2270; J2405; J2543; J2550; J3490; J7030; J7042; J7060; J7620; Q0092

== ENCOUNTER 2018-12-10 23:20 | Emergency (ER) | payer MEDICAID ==
[~2018-12-10] VITALS: Ht 147.3 cm; Wt 95.3 kg
[~2018-12-10 23:20] MED LIST changes: +ACET-5636 PO; +AMIT25TA28 PO; -ATOR10TA PO; -BACL10TA4 PO; -BUPR150T8 PO; +CARI350T PO; -GABA300C PO; -LACT1.4C PO; -LEVO750T2 PO; -MERO500P9 IV; -OXYC1TAB PO; -PANT40EC PO; -PRE.3 PO; +QUET25TA PO; -RIVA15TA1 PO; +SYN.05 PO; +[UNRECOGNIZED DRUG - CODE] PO
[2018-12-10 23:24] VITALS: BP 130/81
--- NOTE | 2018-12-10 23:24 | NUR ---
PT IN WHEELCHAIR TO ER BED 07
[2018-12-10] MEDS ORDERED: NACL 0.9% 1,000 ML IV SCH (23:26)
[2018-12-10] MEDS ORDERED: ONDANSETRON 4 MG/2 ML VIAL IVP ONE (23:30)
[2018-12-10] MEDS ORDERED: MORPHINE SULFATE 4 MG/ML SYR IVP ONE (23:30)
--- NOTE | 2018-12-10 23:30 | NUR ---
48 YO F BIB PRESENTS TO ED C/O 04/13 BILATERAL LOWER ABD PAIN X 2 WEEKS IN THE SAME LOCATION OF HERNIA. PT ALSO REPORTS N/V. DENIES FEVER, CHILLS. PT WAS RECENTLY HOSPITALIZED FOR HERNIA IN NOVEMBER. LAST BM: YESTERDAY, PT STATES IT WAS NORMAL. -- PT APPEARS TO BE IN PAIN. IS TEARFUL. CALM, COOPERATIVE, ANSWERING QUESTIONS APPROPRIATELY. -- ABD IS LARGE, SOFT, TENDER TO TOUCH. BOWEL SOUNDS ACTIVE IN ALL 4 QUADRANTS. -- SKIN PINK, WARM, DRY. BREATHING EVEN, UNLABORED. PMH-- DEPRESSION, ANXIETY, HYPOTHYROID
[2018-12-10] MEDS ORDERED: ATA25 PO (23:50)
[2018-12-10] MEDS ORDERED: ACET-5636 PO (23:50)
[2018-12-10] MEDS ORDERED: PAX20 PO (23:50)
[2018-12-10] MEDS ORDERED: [UNRECOGNIZED DRUG - CODE] PO (23:50)
[2018-12-10] MEDS ORDERED: LEVO0.0211 PO (23:50)
[2018-12-10] MEDS ORDERED: CARI350T PO (23:50)
[2018-12-10 23:57] LABS: APPEARANCE,URINE CLEAR (CLEAR); BILIRUBIN,URINE NEGATIVE (NEGATIVE); BLOOD, URINE NEGATIVE (NEGATIVE); COLOR,URINE YELLOW (YELLOW); LEUKOCYTE ESTERASE ,URINE 2+ (NEGATIVE); NITRITE, URINE NEGATIVE (NEGATIVE); UGLUCOSE NEGATIVE (NEGATIVE)
[2018-12-11] LABS: BASOPHILS # (AUTO) 0.1 K/uL (0.00-0.22); BASOPHILS % (AUTO) 0.6 % (0.0-2.0); EOSINOPHILS # (AUTO) 0.3 K/uL (0-0.4); EOSINOPHILS % (AUTO) 2.4 % (0.0-4.0); HEMATOCRIT 38.2 % (36-48); HEMOGLOBIN 12.6 g/dL (12.0-16.0); LYMPHOCYTES # (AUTO) 3.4 K/uL (2.5-16.5); LYMPHOCYTES % (AUTO) 31.4 % (20.5-51.1); MEAN CORPUSCULAR HEMOGLOBIN 28 pg (27-31); MEAN CORPUSCULAR HGB CONC 33 g/dL (33-37); MEAN CORPUSCULAR VOLUME 84.1 fL (80-94); MONOCYTES # (AUTO) 0.8 K/uL (0.8-1.0); MONOCYTES % (AUTO) 7.3 % (1.7-9.3); NEUTROPHILS # (AUTO) 6.2 K/uL (1.8-7.7); NEUTROPHILS % (AUTO) 58.3 % (42.2-75.2); PLATELET COUNT (AUTO) 465 K/uL (140-450); RED BLOOD CELL COUNT(AUTO) 4.55 MIL/uL (4.20-5.40); RED CELL DISTRIBUTION WIDTH 16.2 % (11.6-13.7); WHITE BLOOD COUNT (AUTO) 10.7 K/uL (4.8-10.8)
--- NOTE | 2018-12-11 | NUR ---
PT TAKEN TO CT VIA WC.
[2018-12-11 00:09] LABS: ANION GAP 12.3 (8-16); CARBON DIOXIDE 26.5 mmol/L (21-32); CREATININE 0.9 mg/dL (0.6-1.3); POTASSIUM 3.8 mmol/L (3.5-5.1)
[2018-12-11 00:12] LABS: RBC,URINE 0-5 /HPF (0-5); TRICHOMONAS,URINE Few /HPF (None Seen)
[2018-12-11 00:15] LABS: ALBUMIN 4.2 g/dL (3.4-5.0); TOTAL BILIRUBIN 0.3 mg/dL (0.0-1.0)
[2018-12-11] MEDS ORDERED: MORPHINE SULFATE 4 MG/ML SYR IVP ONE ×2 (00:15→01:05)
--- NOTE | 2018-12-11 00:15 | NUR ---
PT RETURNED FROM CT.
[2018-12-11] MEDS ORDERED: LEVOFLOXACIN 500 MG/D5W PREMIX 100 ML IV ONE (00:30)
[2018-12-11 01:47] VITALS: BP 107/71
--- NOTE | 2018-12-11 01:47 | NUR ---
Patient discharged with v/s stable. Written and verbal after care instructions given and explained. Patient alert, oriented and verbalized understanding of instructions. Ambulatory with steady gait. All questions addressed prior to discharge. ID band removed. Patient advised to follow up with PMD. Rx of Cipro and Magnesium Citrate given. Patient educated on indication of medication including possible reaction and side effects. Opportunity to ask questions provided and answered.
== END 2018-12-11 01:47 | disposition home or self-care (01) ==
LOC: MED 23:20
DX: K46.9 Unspecified abdominal hernia without obstruction or gangrene (principal); N39.0 Urinary tract infection, site not specified; J45.909 Unspecified asthma, uncomplicated; F17.200 Nicotine dependence, unspecified, uncomplicated; Z88.6 Allergy status to analgesic agent; Z88.1 Allergy status to other antibiotic agents; Z79.899 Other long term (current) drug therapy; Z90.710 Acquired absence of both cervix and uterus; Z98.890 Other specified postprocedural states
CPT/HCPCS: 36415; 74176; 80053; 81001; 83690; 85025; 87086; 96361; 96365; 96375; 96376; 99284; J1956; J2270; J2405

== ENCOUNTER 2018-12-19 16:18 | Emergency (ER) | payer MEDICAID ==
[~2018-12-19] VITALS: Ht 147.3 cm; Wt 93.9 kg
[~2018-12-19 16:18] MED LIST changes: -AMIT25TA28 PO; +ATA25 PO; +LEVO0.0211 PO; -PARO30TA62 PO; +PAX20 PO; -SYN.05 PO; -[UNRECOGNIZED DRUG - CODE] PO
[2018-12-19 16:29] VITALS: BP 119/67
--- NOTE | 2018-12-19 16:56 | NUR ---
PT C/O MID-LOWER ABDOMINAL PAIN RADIATING TO LOWER BACK FOR SEVERAL WEEKS, HX OF HERNIA. PT ALSO REPORTED CONSTIPATION FOR 2 DAYS AND HAVING NAUSEA AND VOMITING FOR 2 TIMES TODAY; SKIN IS PINK/WARM/DRY; AAOX4; ONE MASS IN THE MIDDLE OF ABDOMEN AND TWO MASSES IN THE LLQ PALPATED. PATIENT STATES PAIN OF 9/10 AT THIS TIME; VSS; PATIENT POSITIONED FOR COMFORT; HOB ELEVATED; BEDRAILS UP X2; BED DOWN. ER MD MADE AWARE OF PT STATUS.
[2018-12-19] MEDS ORDERED: ONDANSETRON 4 MG/2 ML VIAL IVP ONE (17:40)
[2018-12-19] MEDS ORDERED: MORPHINE SULFATE 4 MG/ML SYR IVP ONE (17:40)
--- NOTE | 2018-12-19 17:53 | NUR ---
Patient taken to CT scan via gurney by [employer] [facility] [employer].
--- NOTE | 2018-12-19 18:01 | NUR ---
PATIENT RETURN FROM CT.
--- NOTE | 2018-12-19 18:01 | NUR ---
Patient returned from CT scan. RN re-evaluating patient at bedside.
[2018-12-19 18:44] LABS: APPEARANCE,URINE SL CLOUDY (CLEAR); BILIRUBIN,URINE NEGATIVE (NEGATIVE); BLOOD, URINE NEGATIVE (NEGATIVE); COLOR,URINE YELLOW (YELLOW); LEUKOCYTE ESTERASE ,URINE 3+ (NEGATIVE); NITRITE, URINE NEGATIVE (NEGATIVE); PH,URINE 6.5 (5.0-9.0); UGLUCOSE NEGATIVE (NEGATIVE)
[2018-12-19 18:54] LABS: RBC,URINE 0-5 /HPF (0-5)
[2018-12-19 18:55] LABS: TRICHOMONAS,URINE Few /HPF (None Seen); WBC,URINE 16-25 (MOD) /HPF (0-5)
[2018-12-19 18:55] LABS: ANION GAP 14.9 (8-16); CARBON DIOXIDE 23.9 mmol/L (21-32); CREATININE 0.9 mg/dL (0.6-1.3); POTASSIUM 3.8 mmol/L (3.5-5.1)
[2018-12-19 19:01] LABS: ALBUMIN 4.1 g/dL (3.4-5.0); TOTAL BILIRUBIN 0.3 mg/dL (0.0-1.0)
--- NOTE | 2018-12-19 19:07 | NUR ---
RECEIVED REPORT FROM CHARLINE TODD. ASSUMED CARE AT THIS TIME.
[2018-12-19 19:12] LABS: BASOPHILS # (AUTO) 0.1 K/uL (0.00-0.22); BASOPHILS % (AUTO) 0.6 % (0.0-2.0); EOSINOPHILS # (AUTO) 0.2 K/uL (0-0.4); EOSINOPHILS % (AUTO) 1.4 % (0.0-4.0); HEMATOCRIT 36.4 % (36-48); HEMOGLOBIN 12.1 g/dL (12.0-16.0); LYMPHOCYTES # (AUTO) 3.1 K/uL (2.5-16.5); LYMPHOCYTES % (AUTO) 24.3 % (20.5-51.1); MEAN CORPUSCULAR HEMOGLOBIN 28 pg (27-31); MEAN CORPUSCULAR HGB CONC 33 g/dL (33-37); MEAN CORPUSCULAR VOLUME 83.5 fL (80-94); MONOCYTES % (AUTO) 7.7 % (1.7-9.3); NEUTROPHILS # (AUTO) 8.4 K/uL (1.8-7.7); PLATELET COUNT (AUTO) 550 K/uL (140-450); RED BLOOD CELL COUNT(AUTO) 4.36 MIL/uL (4.20-5.40); RED CELL DISTRIBUTION WIDTH 16.1 % (11.6-13.7); WHITE BLOOD COUNT (AUTO) 12.7 K/uL (4.8-10.8)
[2018-12-19 19:16] VITALS: BP 103/57
--- NOTE | 2018-12-19 19:17 | NUR ---
DPatient discharged with v/s stable. Written and verbal after care instructions given and explained. Patient alert, oriented and verbalized understanding of instructions. Ambulatory with steady gait. All questions addressed prior to discharge. ID band removed. Patient advised to follow up with PMD. Rx of Zofran and Miralax given. Patient educated on indication of medication including possible reaction and side effects. Opportunity to ask questions provided and answered.
--- NOTE | 2018-12-21 16:43 | NUR ---
CALLED PT FOR UP DATE OF UTI S/S. URINE CULTURE + E COLI. PT STS " I DO NOT FEEL ANY BETTER. IM GOING TO COME BACK TO THE ER FOR A RECHECK IN 3-4 HOURS." ER MD DR MONTOYA NOTIFTED.
== END 2018-12-19 19:17 | disposition home or self-care (01) ==
LOC: MED 16:18
DX: K43.9 Ventral hernia without obstruction or gangrene (principal); G89.29 Other chronic pain; M54.9 Dorsalgia, unspecified; K59.00 Constipation, unspecified; J45.909 Unspecified asthma, uncomplicated; E11.9 Type 2 diabetes mellitus without complications; Z90.49 Acquired absence of other specified parts of digestive tract; Z98.890 Other specified postprocedural states; Z79.899 Other long term (current) drug therapy; Z88.1 Allergy status to other antibiotic agents; Z88.6 Allergy status to analgesic agent; Z79.891 Long term (current) use of opiate analgesic
CPT/HCPCS: 36415; 74176; 80053; 81001; 85025; 87086; 87186; 96374; 96375; 99284; J2270; J2405

== ENCOUNTER 2018-12-22 16:08 | Emergency (ER) | payer MEDICAID ==
[~2018-12-22] VITALS: Ht 147.3 cm; Wt 93.9 kg
[2018-12-22 16:11] VITALS: BP 111/88
--- NOTE | 2018-12-22 16:18 | NUR ---
PT IN WHEELCHAIR TO ER BED 02
--- NOTE | 2018-12-22 16:20 | NUR ---
B CARLEE C/O UMBILICAL HERNIA AND LEFT INGUINAL HERNIA REPAIR SURGERY X1 YEAR. PT SEEN IN ED 3 DAYS AGO AND WAS SENT HOME TO [facility], BUT SHE IS UNABLE TO MAKE APPOINTMENT UNTIL NEXT WEEK. PAIN AT 9/10. + NAUSEA AND VOMITING. PT REPORTS SHE HAS NOT URINATED IN 2 DAYS & URENATED SMALL AMOUNT OF URINE THIS AM AND NO BM IN 3 DAYS. MEDHX:PE, HERNIA REPAIR SURGERY. PATIENT STATES PAIN OF 9/10 AT THIS TIME; PATIENT POSITIONED FOR COMFORT; HOB ELEVATED; BEDRAILS UP X2; BED DOWN. ER MD MADE AWARE OF PT STATUS.
--- NOTE | 2018-12-22 17:21 | NUR ---
STRAIT CATH URINE 450 CC: YELLOW.
[2018-12-22] MEDS ORDERED: HYDROcodone/APAP 5/325 MG 1 TAB TAB PO ONE ×2 (17:50→18:45)
[2018-12-22 18:29] LABS: APPEARANCE,URINE CLEAR (CLEAR); BILIRUBIN,URINE NEGATIVE (NEGATIVE); BLOOD, URINE NEGATIVE (NEGATIVE); COLOR,URINE YELLOW (YELLOW); LEUKOCYTE ESTERASE ,URINE NEGATIVE (NEGATIVE); NITRITE, URINE NEGATIVE (NEGATIVE); PH,URINE 6.5 (5.0-9.0); UGLUCOSE NEGATIVE (NEGATIVE)
[2018-12-22] MEDS ORDERED: SULFAMETH/TRIMETH DS 800/160MG 1 TAB PO ONE (18:45)
[2018-12-22 18:46] LABS: BASOPHILS # (AUTO) 0.1 K/uL (0.00-0.22); BASOPHILS % (AUTO) 0.8 % (0.0-2.0); EOSINOPHILS # (AUTO) 0.2 K/uL (0-0.4); EOSINOPHILS % (AUTO) 1.6 % (0.0-4.0); HEMATOCRIT 39.6 % (36-48); HEMOGLOBIN 12.8 g/dL (12.0-16.0); LYMPHOCYTES # (AUTO) 3.4 K/uL (2.5-16.5); LYMPHOCYTES % (AUTO) 24.6 % (20.5-51.1); MEAN CORPUSCULAR HEMOGLOBIN 27 pg (27-31); MEAN CORPUSCULAR HGB CONC 32 g/dL (33-37); MEAN CORPUSCULAR VOLUME 84.6 fL (80-94); MONOCYTES # (AUTO) 0.7 K/uL (0.8-1.0); MONOCYTES % (AUTO) 4.9 % (1.7-9.3); NEUTROPHILS # (AUTO) 9.5 K/uL (1.8-7.7); NEUTROPHILS % (AUTO) 68.1 % (42.2-75.2); RED BLOOD CELL COUNT(AUTO) 4.68 MIL/uL (4.20-5.40); RED CELL DISTRIBUTION WIDTH 16.3 % (11.6-13.7); WHITE BLOOD COUNT (AUTO) 13.9 K/uL (4.8-10.8)
[2018-12-22 18:55] LABS: PLATELET COUNT (AUTO) 555 K/uL (140-450)
[2018-12-22 18:57] VITALS: BP 127/88
--- NOTE | 2018-12-22 18:57 | NUR ---
Patient discharged with v/s stable. Written and verbal after care instructions given and explained. Patient alert, oriented and verbalized understanding of instructions. Ambulatory with steady gait. All questions addressed prior to discharge. ID band removed. Patient advised to follow up with PMD. Rx of DOXYCYCLINE,BACTRIM given. Patient educated on indication of medication including possible reaction and side effects. Opportunity to ask questions provided and answered.
[2018-12-22 19:03] LABS: ANION GAP 15.8 (8-16); CARBON DIOXIDE 23.6 mmol/L (21-32); CREATININE 0.9 mg/dL (0.6-1.3); POTASSIUM 3.4 mmol/L (3.5-5.1)
[2018-12-22 19:08] LABS: ALBUMIN 4.2 g/dL (3.4-5.0); TOTAL BILIRUBIN 0.3 mg/dL (0.0-1.0)
== END 2018-12-22 18:57 | disposition home or self-care (01) ==
LOC: MED 16:08
DX: R10.9 Unspecified abdominal pain (principal); R11.2 Nausea with vomiting, unspecified; R39.12 Poor urinary stream; J45.909 Unspecified asthma, uncomplicated; Z79.899 Other long term (current) drug therapy; Z88.6 Allergy status to analgesic agent; Z88.1 Allergy status to other antibiotic agents; Z98.890 Other specified postprocedural states
CPT/HCPCS: 36415; 80053; 81003; 81025; 83690; 85025; 99284

== ENCOUNTER 2018-12-26 16:32 | Emergency (ER) | payer MEDICAID ==
[~2018-12-26] VITALS: Ht 147.3 cm; Wt 93.9 kg
[2018-12-26 16:34] VITALS: BP 104/70
--- NOTE | 2018-12-26 16:42 | NUR ---
48 Y FEMALE BIB SELF C/O LOWER ABD PAIN THAT RADIATES TO LT LOWER BACK X3 WEEKS. PAIN 9/10 DESCRIBED SHARP. PT WAS SEEN HERE ON 12/22 FOR SAME SYMPTOMS, SENT HOME WITH ANTIBIOTICS FOR UTI, AND WAS REFERRED TO DR GOMEZ FOR CONSULT. PT STATES SHE CANNOT WAIT FOR APPOINTMENT, CALLED DR GOMEZ AND WAS REFFERED TO COME INTO ER. LAST BM THIS AM, NORMAL. ACTIVE BOWEL SOUNDS IN ALL 4 QUADRANTS. ABDOMEN SOFT AND ROUND. +N/V X 2 EPISODES SINCE YESTERDAY. PT TACHY AT 108. BED IS DOWN, LOCKED, BED RAIL X 1, ERMD TO SEE PT. MEDHX:UMBILICAL AND INGUINAL HERNIA, CHRONIC BACK PAIN, COPD
--- NOTE | 2018-12-26 16:49 | NUR ---
TRACY WOLFF AT BEDSIDE
[2018-12-26] MEDS ORDERED: NACL 0.9% 1,000 ML IV SCH (17:12)
[2018-12-26] MEDS ORDERED: ONDANSETRON 4 MG/2 ML VIAL IVP ONE (17:15)
[2018-12-26] MEDS ORDERED: MORPHINE SULFATE 4 MG/ML SYR IVP ONE ×2 (17:15→18:20)
[2018-12-26 17:44] LABS: BASOPHILS # (AUTO) 0.1 K/uL (0.00-0.22); BASOPHILS % (AUTO) 1.2 % (0.0-2.0); EOSINOPHILS # (AUTO) 0.2 K/uL (0-0.4); EOSINOPHILS % (AUTO) 1.7 % (0.0-4.0); HEMATOCRIT 37.8 % (36-48); HEMOGLOBIN 12.7 g/dL (12.0-16.0); LYMPHOCYTES # (AUTO) 3.1 K/uL (2.5-16.5); LYMPHOCYTES % (AUTO) 25.2 % (20.5-51.1); MEAN CORPUSCULAR HEMOGLOBIN 28 pg (27-31); MEAN CORPUSCULAR HGB CONC 34 g/dL (33-37); MEAN CORPUSCULAR VOLUME 83.3 fL (80-94); MONOCYTES % (AUTO) 7.8 % (1.7-9.3); NEUTROPHILS % (AUTO) 64.1 % (42.2-75.2); PLATELET COUNT (AUTO) 529 K/uL (140-450); RED BLOOD CELL COUNT(AUTO) 4.54 MIL/uL (4.20-5.40); RED CELL DISTRIBUTION WIDTH 16.5 % (11.6-13.7); WHITE BLOOD COUNT (AUTO) 12.5 K/uL (4.8-10.8)
[2018-12-26 17:56] LABS: ANION GAP 15.7 (8-16); CREATININE 0.8 mg/dL (0.6-1.3); POTASSIUM 3.7 mmol/L (3.5-5.1)
[2018-12-26 18:00] LABS: APPEARANCE,URINE CLEAR (CLEAR); BILIRUBIN,URINE NEGATIVE (NEGATIVE); BLOOD, URINE TRACE-I (NEGATIVE); COLOR,URINE YELLOW (YELLOW); LEUKOCYTE ESTERASE ,URINE 2+ (NEGATIVE); NITRITE, URINE NEGATIVE (NEGATIVE); UGLUCOSE NEGATIVE (NEGATIVE)
--- NOTE | 2018-12-26 18:00 | NUR ---
PT O2 CONTINUES TO DROP TO LOW 89-90. PT STARTED ON 3 L NC. PATIENT OXYGEN NOW AT 95%. PATIENT STATES SHE OCCASIONALLY USES HOME OXYGEN AT 3 L NC.
[2018-12-26 18:02] LABS: ALBUMIN 4.2 g/dL (3.4-5.0); TOTAL BILIRUBIN 0.3 mg/dL (0.0-1.0)
--- NOTE | 2018-12-26 18:02 | NUR ---
PT TAKEN TO CT VIA KEERTHI
[2018-12-26 18:11] LABS: RBC,URINE 0-5 /HPF (0-5); TRICHOMONAS,URINE Few /HPF (None Seen)
--- NOTE | 2018-12-26 18:36 | NUR ---
PT CONTINUES TO COMPLAIN OF ABDOMINAL PAIN, ANOTHER DOSE OF MORHPINE ADMINISTERED MD DR MAGALLANES AND TRACY WOLFF
--- NOTE | 2018-12-26 18:44 | NUR ---
PT AMB TO RESTROOM WITH STEADY GAIT
[2018-12-26] MEDS ORDERED: CARISOPRODOL 350 MG TAB PO ONE (19:00)
[2018-12-26 19:15] VITALS: BP 120/74
--- NOTE | 2018-12-26 19:15 | NUR ---
Patient discharged with v/s stable. Written and verbal after care instructions given and explained. Patient alert, oriented and verbalized understanding of instructions. Ambulatory with steady gait. All questions addressed prior to discharge. ID band removed. Patient advised to follow up with PMD. Rx of ZOFRAN given. Patient educated on indication of medication including possible reaction and side effects. Opportunity to ask questions provided and answered. PT GIVEN COPY OF LAB AND CT RESULTS.
== END 2018-12-26 19:15 | disposition home or self-care (01) ==
LOC: MED 16:32
DX: R10.33 Periumbilical pain (principal); R10.32 Left lower quadrant pain; R10.31 Right lower quadrant pain; F17.210 Nicotine dependence, cigarettes, uncomplicated; Z79.899 Other long term (current) drug therapy; Z88.1 Allergy status to other antibiotic agents; Z88.6 Allergy status to analgesic agent; Z98.890 Other specified postprocedural states
CPT/HCPCS: 36415; 74176; 80053; 81001; 83690; 85025; 87086; 96361; 96374; 96375; 96376; 99284; J2270; J2405; J7030

== ENCOUNTER 2019-01-10 14:36 | Emergency (ER) | payer MEDICAID ==
[~2019-01-10] VITALS: Ht 147.3 cm; Wt 93.0 kg
[2019-01-10 14:50] VITALS: BP 105/74
--- NOTE | 2019-01-10 14:58 | NUR ---
PATIENT AMBULATED TO BED 6
[2019-01-10] MEDS ORDERED: ACET-5636 PO (15:02)
--- NOTE | 2019-01-10 15:15 | NUR ---
BILATERAL LOWER QUADRANT ABD PAIN, N/V/D X 3 DAYS. PT STATES PAIN 7/10 SHARP/BURNING PAIN. DENIES ANY FEVER. ASSISTED TO GOWN; CONNECTED TO MONITOR. ER MD TO EVALUATE PT. HX: INGUINAL/UMBILICAL HERNIA, DIABETES, HYSTERECTOMY
--- NOTE | 2019-01-10 15:19 | NUR ---
DR. ANGULO AT BEDSIDE EVALUATING PATIENT AT THIS TIME.
[2019-01-10] MEDS ORDERED: NACL 0.9% 1,000 ML IV ONE (15:25)
[2019-01-10] MEDS ORDERED: MORPHINE SULFATE 4 MG/ML SYR IVP ONE ×2 (15:25→18:20)
[2019-01-10] MEDS ORDERED: ONDANSETRON 4 MG/2 ML VIAL IVP ONE (15:25)
[2019-01-10 15:46] LABS: BASOPHILS # (AUTO) 0.1 K/uL (0.00-0.22); BASOPHILS % (AUTO) 0.8 % (0.0-2.0); EOSINOPHILS # (AUTO) 0.2 K/uL (0-0.4); EOSINOPHILS % (AUTO) 1.5 % (0.0-4.0); HEMATOCRIT 39.2 % (36-48); HEMOGLOBIN 12.9 g/dL (12.0-16.0); LYMPHOCYTES # (AUTO) 2.5 K/uL (2.5-16.5); MEAN CORPUSCULAR HEMOGLOBIN 28 pg (27-31); MEAN CORPUSCULAR HGB CONC 33 g/dL (33-37); MEAN CORPUSCULAR VOLUME 84.6 fL (80-94); MONOCYTES # (AUTO) 0.7 K/uL (0.8-1.0); MONOCYTES % (AUTO) 7.1 % (1.7-9.3); NEUTROPHILS % (AUTO) 66.6 % (42.2-75.2); PLATELET COUNT (AUTO) 560 K/uL (140-450); RED BLOOD CELL COUNT(AUTO) 4.64 MIL/uL (4.20-5.40); RED CELL DISTRIBUTION WIDTH 16.1 % (11.6-13.7); WHITE BLOOD COUNT (AUTO) 10.5 K/uL (4.8-10.8)
[2019-01-10 16:03] LABS: ANION GAP 15.5 (8-16); CARBON DIOXIDE 26.7 mmol/L (21-32); CREATININE 0.9 mg/dL (0.6-1.3); POTASSIUM 4.2 mmol/L (3.5-5.1)
[2019-01-10 16:09] LABS: ALBUMIN 4.4 g/dL (3.4-5.0); TOTAL BILIRUBIN 0.3 mg/dL (0.0-1.0)
--- NOTE | 2019-01-10 16:13 | NUR ---
PT RETURNED FROM CT.
[2019-01-10 16:17] LABS: BILIRUBIN,URINE NEGATIVE (NEGATIVE); BLOOD, URINE NEGATIVE (NEGATIVE); COLOR,URINE YELLOW (YELLOW); LEUKOCYTE ESTERASE ,URINE 3+ (NEGATIVE); NITRITE, URINE NEGATIVE (NEGATIVE); UGLUCOSE NEGATIVE (NEGATIVE)
[2019-01-10 16:26] LABS: APPEARANCE,URINE HAZY (CLEAR)
[2019-01-10 16:46] LABS: RBC,URINE 0-5 /HPF (0-5); TRICHOMONAS,URINE Rare /HPF (None Seen); WBC,URINE 20-60 /HPF (0-5)
--- NOTE | 2019-01-10 18:27 | NUR ---
IVP MEDS GIVEN-NADR AT THIS TIME
--- NOTE | 2019-01-10 18:43 | NUR ---
Patient discharged with v/s stable. Written and verbal after care instructions given and explained. Patient alert, oriented and verbalized understanding of instructions. Ambulatory with steady gait. All questions addressed prior to discharge. ID band removed. Patient advised to follow up with PMD. Rx of ZOFRAN given. Patient educated on indication of medication including possible reaction and side effects. Opportunity to ask questions provided and answered.PT WITH
[2019-01-10 18:44] VITALS: BP 111/76
== END 2019-01-10 18:53 | disposition home or self-care (01) ==
LOC: MED 14:36
DX: K46.9 Unspecified abdominal hernia without obstruction or gangrene (principal); R11.2 Nausea with vomiting, unspecified; K59.00 Constipation, unspecified; J45.909 Unspecified asthma, uncomplicated; Z98.890 Other specified postprocedural states; Z88.1 Allergy status to other antibiotic agents; Z79.899 Other long term (current) drug therapy; Z88.8 Allergy status to other drugs, medicaments and biological substances
CPT/HCPCS: 36415; 74176; 80053; 81001; 81025; 82948; 83690; 85025; 87086; 87186; 96361; 96374; 96375; 96376; 99284; J2270; J2405; J7030